=== PATIENT | male | born 1950 | race Caucasian/White ===

== ENCOUNTER 2018-10-04 06:16 | Inpatient (IN) | payer MEDICARE ==
--- NOTE | 2018-10-04 06:53 | XR ---
EXAM: XR Chest, 2 Views CLINICAL HISTORY: ITS.REASON XR Reason: Chest Pain TECHNIQUE: Frontal and lateral views of the chest. COMPARISON: No relevant prior studies available. FINDINGS: Lungs: Bibasilar atelectasis with possible right lower lobe infiltrate. Pleural space: Unremarkable. No pneumothorax. Heart: Unremarkable. No cardiomegaly. Mediastinum: Unremarkable. Bones/joints: Degenerative changes of the spine. IMPRESSION: Bibasilar atelectasis with possible right lower lobe infiltrate.
[2018-10-04 07:05] LABS: Basophils % (A) 0 %; Eosinophils # (A) 0.1 k/uL (0-0.7); Eosinophils % (A) 1 %; HCT 41.2 % (39.0-53.0); HGB 13.3 gm/dL (13.0-17.5); Lymphocytes # (A) 1.2 k/uL (1.0-4.8); Lymphocytes % (A) 10 %; MCH 29.3 pg (25.0-35.0); MCHC 32.3 g/dL (31.0-37.0); MCV 90.9 fL (80.0-100.0); Mean Platelet Volume 6.5; Monocytes # (A) 0.6 k/uL (0-1.0); Monocytes % (A) 5 %; Neutrophils # (A) 9.9 k/uL (1.3-7.7); Neutrophils % (A) 83 %; Platelet Count 273 k/uL (150-450); RBC 4.53 m/uL (4.30-5.90); RDW 12.5 % (11.5-15.5)
[2018-10-04 07:18] LABS: Calcium 9.4 mg/dL (8.4-10.2); Magnesium 1.8 mg/dL (1.6-2.3); Total Protein 6.7 g/dL (6.3-8.2)
[2018-10-04 07:19] LABS: Potassium 4.7 mmol/L (3.5-5.1)
[2018-10-04 07:24] LABS: INR 0.9 (<1.2); Partial Thromboplastin Time 22.2 sec (22.0-30.0); Prothrombin Time 10.1 sec (9.0-12.0)
[2018-10-04] MEDS ORDERED: NITROGLYCERIN SL TABS 0.4 MG TAB SUBLINGUAL STA (07:25)
[2018-10-04 07:28] LABS: Creatine Kinase 212 U/L (55-170)
--- NOTE | 2018-10-04 07:30 | ED ---
Chest Pain HPI - General Chief Complaint: Chest Pain Stated Complaint: CHEST PAIN Time Seen by Provider: 10/04/18 07:00 Source: patient, EMS, RN notes reviewed Mode of arrival: EMS Limitations: no limitations - History of Present Illness Initial Comments: Is a 67-year-old male with a prior history of heart disease with a stent about 15 years ago who had the onset about 3 hours prior to my contact with him of retrosternal chest pressure he states it was 8/10 severity. He had some nausea and vomiting with no diaphoresis no shortness breath or other symptoms. He states she's never had pain quite like this before he has taken aspirin nitroglycerin without relief. No recent colds flu cough phlegm production or other symptoms. No abdominal pain he does point to his lower mid sternum. MD Complaint: chest pain - Related Data Allergies Allergy/AdvReac Type Severity Reaction Status Date / Time No Known Allergies Allergy Verified 10/04/18 06:20 Review of Systems ROS Statement: Those systems with pertinent positive or pertinent negative responses have been documented in the HPI. ROS Other: All systems not noted in ROS Statement are negative. EKG Findings - EKG Results: EKG: interpreted by GUALBERTO (Sinus bradycardia rate of 56. Interval 132 year as 100 QT since QTC 442/426 evidence of old inferior changes noted definite acute ST-T wave changes) Past Medical History Past Medical History: Hyperlipidemia, Hypertension, Myocardial Infarction ([place]) Additional Past Medical History / Comment(s): kidney stones, History of Any Multi-Drug Resistant Organisms: None Reported Past Surgical History: Heart Catheterization With Stent Past Psychological History: No Psychological Hx Reported Smoking Status: Never smoker Past Alcohol Use History: None Reported Past Drug Use History: None Reported General Exam - General Exam Comments Initial Comments: This is a well-developed well-nourished awake alert oriented 3 male Limitations: no limitations General appearance: alert, anxious Head exam: Present: atraumatic, normocephalic, normal inspection Eye exam: Present: normal appearance, PERRL, EOMI. Absent: scleral icterus, conjunctival injection, periorbital swelling ENT exam: Present: normal exam, mucous membranes moist Neck exam: Present: normal inspection. Absent: tenderness, meningismus, lymphadenopathy Respiratory exam: Present: normal lung sounds bilaterally. Absent: respiratory distress, wheezes, rales, rhonchi, stridor Cardiovascular Exam: Present: normal rhythm, bradycardia, normal heart sounds. Absent: systolic murmur, diastolic murmur, rubs, gallop, clicks GI/Abdominal exam: Present: soft, normal bowel sounds. Absent: distended, tenderness, guarding, rebound, rigid Extremities exam: Present: normal inspection, full ROM, normal capillary refill. Absent: tenderness, pedal edema, joint swelling, calf tenderness Back exam: Present: normal inspection Neurological exam: Present: alert, oriented X3, CN II-XII intact Psychiatric exam: Present: normal affect, normal mood Skin exam: Present: warm, dry, intact, normal color. Absent: rash Course Vital Signs 10/04/18 10/04/18 10/04/18 06:17 06:19 06:20 Temperature 97.8 F Pulse Rate 58 L Respiratory 22 Rate Blood Pressure 113/70 113/70 O2 Sat by Pulse 96 90 L 64 L Oximetry 10/04/18 10/04/18 10/04/18 06:30 06:40 06:50 Temperature Pulse Rate 58 L 52 L 55 L Respiratory 18 19 20 Rate Blood Pressure 106/72 115/63 133/69 O2 Sat by Pulse 100 100 100 Oximetry 10/04/18 10/04/18 07:28 07:56 Temperature Pulse Rate 66 65 Respiratory 18 18 Rate Blood Pressure 127/67 106/59 O2 Sat by Pulse 98 974 H Oximetry - Reevaluation(s) Reevaluation #1: 10/04/18 07:33 Old EKG was obtained from 02/15/09 which shows a very similar configuration today 's EKG the exception of more prominent T waves in V4 5 and 6 Chest Pain MDM - MDM I did reevaluate patient several occasions the pain the patient presents with his last far unchanged with measures taken. Cardiac enzymes and EKGs. Be unremarkable he does have evidence on x-ray of right lower lobe infiltrate. I had a long discussion with him and his family were present patient will be admitted for evaluation of pneumonia and atypical chest pain. Disposition Clinical Impression: Right lower lobe pneumonia, Atypical chest pain Disposition: ADMITTED IP TO THIS [facility] Condition: Stable Referrals: Julienne Sinclair DO [REFERRING] - 1-2 days
[2018-10-04 07:39] LABS: Creatine Kinase MB 3.8 ng/mL (0.0-2.4); Troponin I <0.012 ng/mL (0.000-0.034)
[2018-10-04 07:43] LABS: Amylase 59 U/L (30-110); Lipase 105 U/L (23-300)
[2018-10-04] MEDS ORDERED: MAG HYDROX/AL HYDROX/SIMETH 30 ML, HYOSCYAMINE ELIXIR 10 ML, CIMETIDINE HCL 300 MG PO STA ×3 (07:48)
[2018-10-04] MEDS ORDERED: KETOROLAC 30 MG/ML 1 ML VIAL IVP STA (08:40)
[2018-10-04] MEDS ORDERED: AZITHROMYCIN 500 MG in SODIUM CHLORIDE 0.9% 250 ML IVPB STA (09:02)
[2018-10-04] MEDS ORDERED: PNEUMONIA PROTOCOL UTILIZED 1 EACH MISC PO PRN (09:02)
[2018-10-04] MEDS ORDERED: NITROGLYCERIN SL TABS 0.4 MG TAB SUBLINGUAL PRN (09:04)
[2018-10-04] MEDS ORDERED: HEPARIN SODIUM,PORCINE 5,000 UNIT/ML 1 ML VIAL IV ONE (09:04)
[2018-10-04] MEDS ORDERED: HEPARIN SOD,PORK IN 0.45% NACL 25,000 UNIT in 0.45% NACL 1 250ML.BAG IV SCH (09:15)
[2018-10-04] MEDS: SODIUM CHLORIDE 0.9% 1,000 ML IV SCH ×2 (09:25→21:30)
[2018-10-04] MEDS ORDERED: NITROGLYCERIN OINT 1 INCH/GM PACKET TOPICAL SCH (12:00)
[2018-10-04 12:09] LABS: Creatine Kinase 140 U/L (55-170)
[2018-10-04 12:21] LABS: Creatine Kinase MB 2.4 ng/mL (0.0-2.4); Troponin I <0.012 ng/mL (0.000-0.034)
--- NOTE | 2018-10-04 14:08 | P.HPIM ---
History of Present Illness H&P Date: 10/04/18 Chief Complaint: Chest pain This is a 67-year-old male patient of Dr. Sinclair. Patient presented to the emergency room with complaints of chest pain that started around 4 AM. Patient describes pain as sharp localized pain in middle of chest. Patient does report he has a history of [place] with stents approximately 15 years ago but is not currently on any anticoagulation. Additional medical history includes hyperlipidemia, hypertension, renal disease, kidney stones and colonoscopy. Chest x-ray completed emergency room showing bibasilar atelectasis with possible right lower lobe infiltrate. Patient started on Zithromax and Rocephin for possible pneumonia. Repeat chest x-ray ordered for a.m. EKG completed showing sinus bradycardia with a heart rate of 56. Troponins negative. D-dimer 0.39. Patient started on heparin drip and cardiology services have been consulted. At this time patient still is reporting some chest discomfort. Patient denies shortness of breath. Patient denies cough. Patient denies any urinary burning or frequency. Patient denies nausea vomiting or diarrhea. Review of Systems Please refer to HPI otherwise unremarkable Past Medical History Past Medical History: Coronary Artery Disease (CAD), Hyperlipidemia, Hypertension, Myocardial Infarction ([place]), Renal Disease Additional Past Medical History / Comment(s): Multiple kidney stones, Last Myocardial Infarction Date:: 1992 History of Any Multi-Drug Resistant Organisms: None Reported Past Surgical History: Heart Catheterization With Stent Additional Past Surgical History / Comment(s): PCI with stent, lithotripsy and open surgery for stone removals, colonoscopy Past Anesthesia/Blood Transfusion Reactions: Motion Sickness Date of Last Stent Placement:: 1992 Smoking Status: Never smoker - Past Family History Father Family Medical History: Myocardial Infarction ([place]) Additional Family Medical History / Comment(s): Father of a [place] in his 70s. Mother Family Medical History: Myocardial Infarction ([place]) Additional Family Medical History / Comment(s): Mother of a [place] in her late 60s. Medications and Allergies Home Medications Medication Instructions Recorded Confirmed Type Atorvastatin [Lipitor] 20 mg PO DAILY 10/04/18 10/04/18 History Ergocalciferol (Vitamin D2) 50,000 unit PO Q7D 10/04/18 10/04/18 History [Vitamin D2] Finasteride [Proscar] 5 mg PO DAILY 10/04/18 10/04/18 History Fluticasone Nasal [place] [Flonase 2 spr EA NOSTRIL DAILY 10/04/18 10/04/18 History Nasal [place]] Losartan [Cozaar] 50 mg PO DAILY 10/04/18 10/04/18 History Meloxicam 7.5 mg PO DAILY 10/04/18 10/04/18 History Omeprazole 20 mg PO DAILY 10/04/18 10/04/18 History Propranolol [Inderal] 40 mg PO BID 10/04/18 10/04/18 History Allergies Allergy/AdvReac Type Severity Reaction Status Date / Time No Known Allergies Allergy Verified 10/04/18 09:37 Physical Exam Vitals: Vital Signs Temp Pulse Pulse Resp BP BP Pulse Ox 10/04/18 12:07 88 18 129/83 99 10/04/18 12:00 96.2 F L 95 18 137/73 97 10/04/18 11:22 87 18 134/77 99 10/04/18 09:37 86 18 134/71 100 10/04/18 07:56 65 18 106/59 974 H 10/04/18 07:28 66 18 127/67 98 10/04/18 06:50 55 L 20 133/69 100 10/04/18 06:40 52 L 19 115/63 100 10/04/18 06:30 58 L 18 106/72 100 10/04/18 06:20 113/70 64 L 10/04/18 06:19 90 L 10/04/18 06:17 97.8 F 58 L 22 113/70 96 Intake and Output 10/03/18 10/04/18 10/04/18 22:59 06:59 14:59 Intake Total 1200 Balance 1200 Intake: Amount of Fluid Infused ( 1000 ml) Oral 200 Other: Weight 76.204 kg Head normocephalic Neck supple Lungs clear to auscultation bilaterally no wheezing or crackles Heart regular rate and rhythm S1-S2, no rub or gallop Abdomen is soft nontender nondistended positive bowel sounds no hepatosplenomegaly Extremities no edema Neuro alert and orientated to 3 Results CBC & Chem 7: 10/04/18 06:26 10/04/18 06:26 Labs: Abnormal Lab Results - Last 24 Hours (Table) 10/04/18 10/04/18 10/04/18 Range/Units 06:26 06:26 06:26 WBC 12.0 H (3.8-10.6) k/uL Neutrophils # 9.9 H (1.3-7.7) k/uL BUN 32 H (9-20) mg/dL Glucose 165 H (74-99) mg/dL Total Creatine Kinase 212 H (55-170) U/L CK-MB (CK-2) 3.8 H (0.0-2.4) ng/mL Thrombosis Risk Factor Assmnt - Choose All That Apply Any of the Below Risk Factors Present?: Yes Each Factor Represents 1 point: Serious lung disease incl. pneumonia (< 1month) Other Risk Factors: Yes Each Risk Factor Represents 2 Points: Age 61-74 years Other congenital or acquired thrombophilia - If yes, enter type in comment: No Thrombosis Risk Factor Assessment Total Risk Factor Score: 3 Thrombosis Risk Factor Assessment Level: Moderate Risk Assessment and Plan Assessment: 1. Chest pain. Troponin negative 2. EKG completed showing sinus bradycardia. Inferior infarct, age undetermined. Cardiac services have been consulted. Patient started on heparin drip. 2. Possible pneumonia. Chest x-ray completed showing bibasilar atelectasis and possible right lower lobe infiltrate. Patient started on Zithromax and Rocephin. Repeat chest x-ray has been ordered for a.m. Sputum culture ordered 3. History of coronary artery disease with previous stent placement. Patient reports this was approximately 15 years ago. Patient currently not on anticoagulation 4. History of hyperlipidemia 5. History of essential hypertension Time with Patient: Greater than 30 (Greater than 60% of the total time spent in counseling and coordination of care. I performed an examination of the patient and discussed their management with the Nurse Practitioner. I have reviewed the Nurse Practitioner's notes and agree with the documented findings and plan of care)
--- NOTE | 2018-10-04 15:30 | P.CRDCN ---
History of Present Illness Consult date: 10/04/18 Requesting physician: Sary Martinez Consult reason: chest pain Chief complaint: Chest pain History of present illness: This is a pleasant 67-year-old gentleman with known history of coronary artery disease and prior stent placement 15 years ago, history of hypertension, hyperlipidemia, nondiabetic, nonsmoker. Presented to the hospital with symptoms of chest discomfort. His chest pain is located in the lower midsternal area, significantly worse on palpation of the chest wall. Pain started yesterday and is persisting through until today. He does state that he had some mild nausea with associated vomiting, shortness of breath, no diaphoresis. He has had a mild cough but he states he has had this for several years. Chest x-ray performed on admission shows basilar atelectasis with possible right lower lobe infiltrate. EKG on admission here shows sinus bradycardia with inferior Q waves. I pressure 128/80 with a heart rate in the 80s, 99% on 2 L of oxygen. Blood cell count 12.0, hemoglobin 13.3, platelet count 273. D-dimer 0.39, sodium 139, potassium 4.7, BUN 32 and creatinine 1.05. Magnesium level I.8. Troponins negative 2. At the time of my examination this morning, patient's chest wall in the lower midsternal area continues to be sore on palpation of the chest. Past Medical History Past Medical History: Coronary Artery Disease (CAD), Hyperlipidemia, Hypertension, Myocardial Infarction ([place]), Renal Disease Additional Past Medical History / Comment(s): Multiple kidney stones, Last Myocardial Infarction Date:: 1992 History of Any Multi-Drug Resistant Organisms: None Reported Past Surgical History: Heart Catheterization With Stent Additional Past Surgical History / Comment(s): PCI with stent, lithotripsy and open surgery for stone removals, colonoscopy Past Anesthesia/Blood Transfusion Reactions: Motion Sickness Date of Last Stent Placement:: 1992 Smoking Status: Never smoker - Past Family History Father Family Medical History: Myocardial Infarction ([place]) Additional Family Medical History / Comment(s): Father of a [place] in his 70s. Mother Family Medical History: Myocardial Infarction ([place]) Additional Family Medical History / Comment(s): Mother of a [place] in her late 60s. Medications and Allergies Home Medications Medication Instructions Recorded Confirmed Type Atorvastatin [Lipitor] 20 mg PO DAILY 10/04/18 10/04/18 History Ergocalciferol (Vitamin D2) 50,000 unit PO Q7D 10/04/18 10/04/18 History [Vitamin D2] Finasteride [Proscar] 5 mg PO DAILY 10/04/18 10/04/18 History Fluticasone Nasal [place] [Flonase 2 spr EA NOSTRIL DAILY 10/04/18 10/04/18 History Nasal [place]] Losartan [Cozaar] 50 mg PO DAILY 10/04/18 10/04/18 History Meloxicam 7.5 mg PO DAILY 10/04/18 10/04/18 History Omeprazole 20 mg PO DAILY 10/04/18 10/04/18 History Propranolol [Inderal] 40 mg PO BID 10/04/18 10/04/18 History Allergies Allergy/AdvReac Type Severity Reaction Status Date / Time No Known Allergies Allergy Verified 10/04/18 09:37 Physical Exam Vitals: Vital Signs Temp Pulse Pulse Resp BP BP Pulse Ox 10/04/18 12:07 88 18 129/83 99 10/04/18 12:00 96.2 F L 95 18 137/73 97 10/04/18 11:22 87 18 134/77 99 10/04/18 09:37 86 18 134/71 100 10/04/18 07:56 65 18 106/59 974 H 10/04/18 07:28 66 18 127/67 98 10/04/18 06:50 55 L 20 133/69 100 10/04/18 06:40 52 L 19 115/63 100 10/04/18 06:30 58 L 18 106/72 100 10/04/18 06:20 113/70 64 L 10/04/18 06:19 90 L 10/04/18 06:17 97.8 F 58 L 22 113/70 96 Intake and Output 10/04/18 10/04/18 10/04/18 06:59 14:59 22:59 Intake Total 1200 Balance 1200 Intake: Amount of Fluid Infused ( 1000 ml) Oral 200 Other: Weight 76.204 kg PHYSICAL EXAMINATION: GENERAL: 67-year-old gentleman in no acute distress at the time HEENT: Head is atraumatic, normocephalic. Pupils equal, round. Sclera anicteric. Conjunctiva are clear. Mucous membranes of the mouth are moist. Neck is supple. There is no elevated jugular venous pressure. NO Carotid bruit is heard. HEART EXAMINATION: Heart S1, S2 normal. No murmur or gallop heard. CHEST EXAMINATION:[ Lungs are clear to auscultation and precussion. Positive chest wall tenderness is noted on palpation of the chest wall ABDOMEN: Soft, nontender. Bowel sounds are heard. No organomegaly noted. EXTREMITIES: 2+ peripheral pulses with no evidence of peripheral edema and no calf tenderness noted. NEUROLOGIC patient is awake, alert and oriented X3. . Results 10/04/18 06:26 10/04/18 06:26 Cardiac Enzymes 10/04/18 10/04/18 10/04/18 Range/Units 06:26 06:26 11:24 AST 39 (17-59) U/L CK-MB (CK-2) 3.8 H 2.4 (0.0-2.4) ng/mL Troponin I <0.012 <0.012 (0.000-0.034) ng/mL Coagulation 10/04/18 Range/Units 06:26 PT 10.1 (9.0-12.0) sec APTT 22.2 (22.0-30.0) sec CBC 10/04/18 Range/Units 06:26 WBC 12.0 H (3.8-10.6) k/uL RBC 4.53 (4.30-5.90) m/uL Hgb 13.3 (13.0-17.5) gm/dL Hct 41.2 (39.0-53.0) % Plt Count 273 (150-450) k/uL Comprehensive Metabolic Panel 10/04/18 Range/Units 06:26 Sodium 139 (137-145) mmol/L Potassium 4.7 (3.5-5.1) mmol/L Chloride 106 (98-107) mmol/L Carbon Dioxide 24 (22-30) mmol/L BUN 32 H (9-20) mg/dL Creatinine 1.05 (0.66-1.25) mg/dL Glucose 165 H (74-99) mg/dL Calcium 9.4 (8.4-10.2) mg/dL AST 39 (17-59) U/L ALT 45 (21-72) U/L Alkaline Phosphatase 113 (38-126) U/L Total Protein 6.7 (6.3-8.2) g/dL Albumin 4.0 (3.5-5.0) g/dL Current Medications Generic Name Dose Route Start Last Admin Trade Name Freq PRN Reason Stop Dose Admin Aspirin 325 mg 10/05/18 09:00 Aspirin PO DAILY [facility] Atorvastatin Calcium 20 mg 10/05/18 09:00 Lipitor PO DAILY [facility] Azithromycin 500 mg 10/05/18 09:00 Zithromax PO DAILY [facility] Finasteride 5 mg 10/05/18 09:00 Proscar PO DAILY [facility] Fluticasone Propionate 2 spray 10/05/18 09:00 Flonase Nasal [place] EA NOSTRIL DAILY [facility] Ceftriaxone Sodium 1,000 mg/ 50 mls @ 100 mls/hr 10/05/18 09:00 Sodium Chloride IVPB 10/08/18 09:01 Q24HR [facility] Heparin Sodium/Sodium Chloride 250 mls @ 9.14 mls/hr 10/04/18 09:15 10/04/18 09:21 25,000 unit/ Sodium Chloride IV 12 units/kg/hr .Q24H LORI 9.14 mls/hr Administration Protocol 12 UNITS/KG/HR Sodium Chloride 1,000 mls @ 80 mls/hr 10/04/18 09:15 10/04/18 09:25 Saline 0.9% IV 80 mls/hr .[id number] LORI Administration Losartan Potassium 50 mg 10/05/18 09:00 Cozaar PO DAILY [facility] Miscellaneous Information 1 each 10/04/18 09:02 Pneumonia Protocol Utilized PO ONCE PRN Per Protocol Nitroglycerin 1 inch 10/04/18 12:00 10/04/18 09:30 Nitro-Bid Oint TOPICAL 1 inch Q6HR LORI Administration Nitroglycerin 0.4 mg 10/04/18 09:04 Nitrostat SUBLINGUAL Q5M PRN Chest Pain Pantoprazole Sodium 40 mg 10/05/18 07:30 Protonix PO AC-BRKFST [facility] Propranolol HCl 40 mg 10/04/18 21:00 Inderal PO BID LORI Intake and Output 10/04/18 10/04/18 10/04/18 06:59 14:59 22:59 Intake Total 1200 Balance 1200 Intake: Amount of Fluid Infused ( 1000 ml) Oral 200 Other: Weight 76.204 kg 10/04/18 06:26 10/04/18 06:26 EKG Interpretations (text) EKG shows a sinus bradycardia with inferior Q waves. Assessment and Plan Plan: Assessment and plan #1 chest pain, atypical for acute coronary syndrome. Troponins negative 2. EKG shows a sinus bradycardia with inferior Q waves #2 known history of coronary artery disease with prior stent placement several years ago #3 hypertension #4 hyperlipidemia #5 family history of premature coronary artery disease in both of his periods Plan We will obtain an echocardiogram with Doppler study. Repeat EKG. Obtain third troponin. If third troponin comes back negative, recommend possible stress test in the morning. Further recommendations to follow. DNP note has been reviewed, I agree with a documented findings and plan of care. Patient was seen and examined.
[2018-10-04] MEDS: KETOROLAC 30 MG/ML 1 ML VIAL IVP PRN ×2 (16:27→23:12)
[2018-10-04] MEDS: HEPARIN SODIUM,PORCINE 5,000 UNIT/ML 1 ML VIAL IV PRN (17:38)
[2018-10-04] MEDS ORDERED: KETOROLAC 30 MG/ML 1 ML VIAL IVP SCH (18:00)
[2018-10-04 18:59] LABS: Creatine Kinase 112 U/L (55-170)
[2018-10-04 19:12] LABS: Creatine Kinase MB 1.9 ng/mL (0.0-2.4); Troponin I <0.012 ng/mL (0.000-0.034)
[2018-10-04] MEDS: PROPRANOLOL 40 MG TAB PO SCH (21:30)
[2018-10-05] MEDS: KETOROLAC 30 MG/ML 1 ML VIAL IVP PRN ×2 (05:17→14:34)
[2018-10-05 06:38] LABS: Basophils % (A) 0 %; Eosinophils % (A) 0 %; HCT 36.8 % (39.0-53.0); Lymphocytes # (A) 0.8 k/uL (1.0-4.8); Lymphocytes % (A) 7 %; MCH 30.2 pg (25.0-35.0); MCHC 32.6 g/dL (31.0-37.0); MCV 92.6 fL (80.0-100.0); Mean Platelet Volume 6.9; Monocytes % (A) 8 %; Neutrophils # (A) 9.8 k/uL (1.3-7.7); Neutrophils % (A) 83 %; Platelet Count 178 k/uL (150-450); RBC 3.98 m/uL (4.30-5.90); RDW 12.8 % (11.5-15.5); WBC 11.8 k/uL (3.8-10.6)
[2018-10-05 06:43] LABS: Calcium 8.8 mg/dL (8.4-10.2); Potassium 4.3 mmol/L (3.5-5.1); Total Protein 5.4 g/dL (6.3-8.2)
[2018-10-05] MEDS ORDERED: PANTOPRAZOLE 40 MG TABLET PO SCH (07:30)
--- NOTE | 2018-10-05 07:30 | XR ---
EXAMINATION TYPE: XR chest 2V DATE OF EXAM: 10/05/2018 COMPARISON: 10/04/2018 INDICATION: Pneumonia TECHNIQUE: Frontal and lateral views of the chest are obtained. FINDINGS: The heart size is normal. The pulmonary vasculature is normal. The lungs are clear. Improving shadows at the bilateral lung bases. IMPRESSION: 1. No acute pulmonary process.
[2018-10-05] MEDS: HEPARIN SODIUM,PORCINE 5,000 UNIT/ML 1 ML VIAL IV PRN (08:19)
[2018-10-05] MEDS ORDERED: ATORVASTATIN 20 MG TAB PO SCH (09:00)
[2018-10-05] MEDS ORDERED: AZITHROMYCIN 500 MG TAB PO SCH (09:00)
[2018-10-05] MEDS ORDERED: LOSARTAN 50 MG TAB PO SCH (09:00)
[2018-10-05] MEDS ORDERED: FLUTICASONE 50MCG/SPRAY NASAL 16GM EA NOSTRIL SCH (09:00)
[2018-10-05] MEDS ORDERED: ASPIRIN 325 MG TAB PO SCH (09:00)
[2018-10-05] MEDS ORDERED: FINASTERIDE 5 MG TAB PO SCH (09:00)
[2018-10-05] MEDS: PROPRANOLOL 40 MG TAB PO SCH (10:28)
[2018-10-05] MEDS: SODIUM CHLORIDE 0.9% 1,000 ML IV SCH (10:38)
--- NOTE | 2018-10-05 11:28 | ECHOF ---
Referral Reason:chest pain MEASUREMENTS -------- HEIGHT: 172.7 cm WEIGHT: 76.2 kg BP: 129/83 IVSd: 0.9 cm (0.6 - 1.1) LVIDd: 5.0 cm (3.9 - 5.3) LVPWd: 0.9 cm (0.6 - 1.1) IVSs: 1.4 cm LVIDs: 3.6 cm LVPWs: 1.4 cm RVIDd: 3.1 cm (< 3.3) LAESV Index (A-L): 25.16 ml/m Ao Diam: 2.9 cm (2.0 - 3.7) LA Diam: 3.7 cm (2.7 - 3.8) AV Cusp: 2.0 cm (1.5 - 2.6) EPSS: 0.3 cm MV E Patrice: 0.94 m/s MV DecT: 312 ms MV A Patrice: 1.34 m/s MV E/A Ratio: 0.70 RAP: 5.00 mmHg RVSP: 31.22 mmHg MV EF SLOPE: 120.41 mm/s (70 - 150) MV EXCURSION: 18.55 mm (> 18.000) FINDINGS -------- Sinus rhythm. This was a technically good study. The left ventricular size is normal. Left ventricular wall thickness is normal. Overall left vent ricular systolic function is normal with, an EF between 55 - 60 %. The right ventricle is normal in size and function. Normal LA size by volume 22+/-6 ml/m2. RA appears enlarged. Aortic valve is trileaflet and is mildly thickened. Trace amount of aortic regurgitation. There is no evidence of aortic stenosis. The mitral valve leaflets are mildly thickened. Mild mitral regurgitation is present. Mild tricuspid regurgitation present. Right ventricular systolic pressure is normal at < 35 mmHg. There is no evidence of pulmonary hypertension. Trace/mild (physiologic) pulmonic regurgitation. The aortic root size is normal. Normal inferior vena cava with normal inspiratory collapse consistent with estimated right atrial pre ssure of 5 mmHg. There is no pericardial effusion. CONCLUSIONS -------- 1. Sinus rhythm. 2. This was a technically good study. 3. The left ventricular size is normal. 4. Left ventricular wall thickness is normal. 5. Overall left ventricular systolic function is normal with, an EF between 55 - 60 %. 6. Normal LA size by volume 22+/-6 ml/m2. 7. RA appears enlarged. 8. Aortic valve is trileaflet and is mildly thickened. 9. Trace amount of aortic regurgitation. 10. The mitral valve leaflets are mildly thickened. 11. Mild mitral regurgitation is present. 12. Mild tricuspid regurgitation present. 13. Right ventricular systolic pressure is normal at < 35 mmHg. 14. There is no evidence of pulmonary hypertension. 15. Trace/mild (physiologic) pulmonic regurgitation. 16. The aortic root size is normal. 17. There is no pericardial effusion. ANIMAL PATHOLOGIST: Yimi Mcdaniel RDCS
--- NOTE | 2018-10-05 14:29 | P.PN ---
Subjective Progress Note Date: 10/05/18 This is a pleasant 67-year-old gentleman with known history of coronary artery disease and prior stent placement 15 years ago, history of hypertension, hyperlipidemia, nondiabetic, nonsmoker. Presented to the hospital with symptoms of chest discomfort. His chest pain is located in the lower midsternal area, significantly worse on palpation of the chest wall. Pain started yesterday and is persisting through until today. He does state that he had some mild nausea with associated vomiting, shortness of breath, no diaphoresis. He has had a mild cough but he states he has had this for several years. Chest x-ray performed on admission shows basilar atelectasis with possible right lower lobe infiltrate. EKG on admission here shows sinus bradycardia with inferior Q waves. I pressure 128/80 with a heart rate in the 80s, 99% on 2 L of oxygen. Blood cell count 12.0, hemoglobin 13.3, platelet count 273. D-dimer 0.39, sodium 139, potassium 4.7, BUN 32 and creatinine 1.05. Magnesium level I.8. Troponins negative 2. At the time of my examination this morning, patient's chest wall in the lower midsternal area continues to be sore on palpation of the chest. 10/05/2018 Patient was seen and examined this morning, still has some chest wall tenderness. Cardiac enzymes and troponins were negative 3. He underwent a stress echocardiographic study today that was negative for any reversible ischemia. Blood pressure 134/60 with a heart rate in the 70s to 80s, 94% on room air. Blood cell count 11.8, hemoglobin 12.0, platelet count 178. Sodium 139, potassium 4.3, BUN 29 and creatinine 1.0. Objective - Vital Signs Vital signs: Vital Signs Temp 98.7 F 10/05/18 04:00 Pulse 90 10/05/18 04:00 Resp 17 10/05/18 04:00 BP 143/58 10/05/18 04:00 Pulse Ox 95 10/05/18 07:25 Intake & Output 10/04/18 10/05/18 10/05/18 18:59 06:59 18:59 Intake Total 1516.167 73.152 67.027 Output Total 700 Balance 816.167 73.152 67.027 Weight 80 kg Intake: Amount of Fluid Infused ( 1000 ml) Intake, IV Titration 76.167 73.152 67.027 Amount Heparin Sod,Pork in 0.45% 76.167 73.152 67.027 NaCl 25,000 unit In 0.45 % NaCl 1 250ml.bag @ 12 UNITS/KG/HR 9.14 mls/hr IV .Q24H [facility] Rx#: [id number] Oral 440 Output: Urine 700 Other: Voiding Method Toilet # Voids 4 2 - Exam PHYSICAL EXAMINATION: GENERAL: 67-year-old gentleman in no acute distress at the time HEENT: Head is atraumatic, normocephalic. Pupils equal, round. Sclera anicteric. Conjunctiva are clear. Mucous membranes of the mouth are moist. Neck is supple. There is no elevated jugular venous pressure. NO Carotid bruit is heard. HEART EXAMINATION: Heart S1, S2 normal. No murmur or gallop heard. CHEST EXAMINATION:[ Lungs are clear to auscultation and precussion. Positive chest wall tenderness is noted on palpation of the chest wall ABDOMEN: Soft, nontender. Bowel sounds are heard. No organomegaly noted. EXTREMITIES: 2+ peripheral pulses with no evidence of peripheral edema and no calf tenderness noted. NEUROLOGIC patient is awake, alert and oriented X3. - Labs CBC & Chem 7: 10/05/18 05:51 10/05/18 05:51 Labs: Abnormal Lab Results - Last 24 Hours (Table) 10/04/18 10/04/18 10/05/18 Range/Units 15:58 23:15 05:51 WBC (3.8-10.6) k/uL RBC (4.30-5.90) m/uL Hgb (13.0-17.5) gm/dL Hct (39.0-53.0) % Neutrophils # (1.3-7.7) k/uL Lymphocytes # (1.0-4.8) k/uL APTT 34.6 H 118.7 H* (22.0-30.0) sec Chloride 110 H (98-107) mmol/L BUN 29 H (9-20) mg/dL Glucose 100 H (74-99) mg/dL Total Protein 5.4 L (6.3-8.2) g/dL Albumin 3.0 L (3.5-5.0) g/dL HDL Cholesterol 37 L (40-60) mg/dL 10/05/18 10/05/18 Range/Units 05:51 05:51 WBC 11.8 H (3.8-10.6) k/uL RBC 3.98 L (4.30-5.90) m/uL Hgb 12.0 L (13.0-17.5) gm/dL Hct 36.8 L (39.0-53.0) % Neutrophils # 9.8 H (1.3-7.7) k/uL Lymphocytes # 0.8 L (1.0-4.8) k/uL APTT 37.2 H (22.0-30.0) sec Chloride (98-107) mmol/L BUN (9-20) mg/dL Glucose (74-99) mg/dL Total Protein (6.3-8.2) g/dL Albumin (3.5-5.0) g/dL HDL Cholesterol (40-60) mg/dL Microbiology - Last 24 Hours (Table) 10/04/18 09:30 Blood Culture - Preliminary Blood No Growth after 24 hours Assessment and Plan Plan: Assessment and plan #1 chest pain, atypical for acute coronary syndrome. Troponins negative 2. EKG shows a sinus bradycardia with inferior Q waves #2 known history of coronary artery disease with prior stent placement several years ago #3 hypertension #4 hyperlipidemia #5 family history of premature coronary artery disease in both of his periods Plan Echocardiogram with Doppler study was performed which revealed a normal left ventricular systolic function. Stress echocardiographic study negative for any reversible ischemia. From cardiology's perspective, patient may be able to be discharged home today, follow-up appointment in the office post discharge. DNP note has been reviewed, I agree with a documented findings and plan of care. Patient was seen and examined.
--- NOTE | 2018-10-05 14:35 | P.DS ---
Providers Date of admission: 10/04/18 09:06 Expected date of discharge: 10/05/18 Attending physician: Sary Martinez Consults: 10/04/18 09:02 Consult Physician Routine Consulting Provider: Tod Mina Consult Reason/Comments: Atypical chest pain, history of cardiac stent Do you want consulting provider notified?: Yes Primary care physician: Adelina Uab Hospital Course: Discharge diagnosis 1. Chest pain. Troponin negative 2. EKG completed showing sinus bradycardia. Inferior infarct, age undetermined. 2-D echo completed showing EF between 55 and 60%. Stress test completed and was negative for any reversible ischemia. Discussed with Teri fraga [employer] per cardiology services. Patient has been cleared for discharge from cardiology standpoint. Patient's chest pain has resolved 2. Possible pneumonia. Chest x-ray completed showing bibasilar atelectasis and possible right lower lobe infiltrate. Repeat chest x-ray completed showing no acute pulmonary process. Patient does have mild cough with no sputum production. Will DC patient on Ceftin 500 twice a day for 5 more days 3. History of coronary artery disease with previous stent placement. Patient reports this was approximately 15 years ago. Patient currently not on anticoagulation 4. History of hyperlipidemia 5. History of essential hypertension Hospital course This is a 67-year-old male patient of Dr. Sinclair. Patient presented to the emergency room with complaints of chest pain that started around 4 AM. Patient describes pain as sharp localized pain in middle of chest. Patient does report he has a history of MT with stents approximately 15 years ago but is not currently on any anticoagulation. Additional medical history includes hyperlipidemia, hypertension, renal disease, kidney stones and colonoscopy. Chest x-ray completed emergency room showing bibasilar atelectasis with possible right lower lobe infiltrate. Patient started on Zithromax and Rocephin for possible pneumonia. Repeat chest x-ray ordered for a.m. EKG completed showing sinus bradycardia with a heart rate of 56. Troponins negative. D-dimer 0.39. Patient started on heparin drip and cardiology services have been consulted. At this time patient still is reporting some chest discomfort. Patient denies shortness of breath. Patient denies cough. Patient denies any urinary burning or frequency. Patient denies nausea vomiting or diarrhea. On 10/05/2018. Patient is alert and oriented 3 resting comfortably in bed. Patient states significant improvement chest pain. Patient states he feels ready to go home. Patient did have stress test and 2-D echo completed. Patient has been cleared for discharge from cardiology standpoint with no changes to medication. Patient will be DC'd on Ceftin 500 twice a day for 5 more days due to possible pneumonia initially found on chest x-ray completed in ER. Patient advised to follow-up closely with his PCP for further evaluation and management. Patient denies chest pain or shortness breath. Denies nausea vomiting or diarrhea. Patient denies any urinary burning I performed an examination of the patient and discussed their management with the Nurse Practitioner. I have reviewed the Nurse Practitioner's notes and agree with the documented findings and plan of care Patient Condition at Discharge: Stable Plan - Discharge Summary Discharge Rx Participant: No New Discharge Prescriptions: New Cefuroxime Axetil [Ceftin] 500 mg PO BID 5 Days #10 tab Continue Propranolol [Inderal] 40 mg PO BID Fluticasone Nasal [place] [Flonase Nasal [place]] 2 spr EA NOSTRIL DAILY Finasteride [Proscar] 5 mg PO DAILY Ergocalciferol (Vitamin D2) [Vitamin D2] 50,000 unit PO Q7D Omeprazole 20 mg PO DAILY Meloxicam 7.5 mg PO DAILY Losartan [Cozaar] 50 mg PO DAILY Atorvastatin [Lipitor] 20 mg PO DAILY Discharge Medication List Atorvastatin [Lipitor] 20 mg PO DAILY 10/04/18 [History] Ergocalciferol (Vitamin D2) [Vitamin D2] 50,000 unit PO Q7D 10/04/18 [History] Finasteride [Proscar] 5 mg PO DAILY 10/04/18 [History] Fluticasone Nasal [place] [Flonase Nasal [place]] 2 spr EA NOSTRIL DAILY 10/04/18 [ History] Losartan [Cozaar] 50 mg PO DAILY 10/04/18 [History] Meloxicam 7.5 mg PO DAILY 10/04/18 [History] Omeprazole 20 mg PO DAILY 10/04/18 [History] Propranolol [Inderal] 40 mg PO BID 10/04/18 [History] Cefuroxime Axetil [Ceftin] 500 mg PO BID 5 Days #10 tab 10/05/18 [Rx] Follow up Appointment(s)/Referral(s): Julienne Sinclair DO [REFERRING] - 1-2 days Activity/Diet/Wound Care/Special Instructions: Activity as tolerated Diet regular Discharge Disposition: HOME SELF-CARE
[2018-10-05 16:07] VITALS: RESP 18
[2018-10-05 16:09] VITALS: BP 127/63; PULSE 86; TEMP 98.8
--- NOTE | 2018-10-06 10:57 | ECHOS ---
STRESS ECHOCARDIOGRAM INDICATIONS: Chest pain. MEDICATIONS: BP pill, aspirin. BASELINE HEART RATE: 83 BASELINE BLOOD PRESSURE: 127/52 MAXIMUM HEART RATE: 121 MAXIMUM BLOOD PRESSURE: 179/57 85% MPHR: 129 100% MPHR: 152 METS: 11.7 MAXIMUM STAGE REACHED: III TOTAL EXERCISE TIME: 10:15 CLINICAL INFORMATION: Baseline heart rate 83 beats per minute. Baseline blood pressure 127/52 mmHg. Baseline 12-lead ECG shows normal sinus rhythm with normal cardiac intervals. Patient exercised on a Ronaldo protocol for 10 minutes 15 seconds achieving a peak heart rate of 121 beats per minute. Normal blood pressure response to exercise. There was a [address]- depression noted at peak exercise with T-wave inversions. This became downsloping ST depression of about 2 mm at peak exercise. The baseline 2D echo showed normal LV size and systolic function at peak exercise there was excellent augmentation of overall LV contractility without any augmentation or any deterioration in the segmental wall function of the inferior basal segment. At recovery, global LV systolic function remained normal. Inferior basal segment function remained the same. IMPRESSION: Abnormal ECG with an ischemic response of downsloping [address] depression. The echocardiographic images do not show any worsening of the inferior wall motion abnormality. However, is definitely an ischemic response based upon the ECG criteria. MMODL / IJN: [id number] /
== END 2018-10-05 15:50 | disposition home or self-care (01) | DRG 194 ==
LOC: EC 06:16 → 3SCARD 09:06
PROVIDERS: ADMIT Internal Medicine; ATTEND Internal Medicine
DX: J18.9 Pneumonia, unspecified organism (principal); J98.11 Atelectasis; R07.89 Other chest pain; E78.5 Hyperlipidemia, unspecified; I10 Essential (primary) hypertension; I25.10 Atherosclerotic heart disease of native coronary artery without angina pectoris; I25.2 Old myocardial infarction; Z79.899 Other long term (current) drug therapy; Z82.49 Family history of ischemic heart disease and other diseases of the circulatory system; Z87.442 Personal history of urinary calculi; Z95.5 Presence of coronary angioplasty implant and graft; R00.1 Bradycardia, unspecified
CPT/HCPCS: 36415; 71046; 80053; 80061; 82150; 82550; 82553; 83690; 83735; 84484; 85025; 85379; 85610; 85730; 87040; 93005; 93306; 93351; 94760; 96365; 96366; 96375; 96376; 99285

== ENCOUNTER 2018-10-06 15:18 | Inpatient (IN) | payer MEDICARE ==
[2018-10-06] MEDS ORDERED: SODIUM CHLORIDE 0.9% 1,000 ML IV STA ×2 (15:56)
[2018-10-06] MEDS ORDERED: IPRATROPIUM-ALBUTEROL 3 ML NEB INHALATION STA (15:56)
[2018-10-06 16:45] LABS: Basophils % (A) 0 %; Eosinophils # (A) 0.1 k/uL (0-0.7); Eosinophils % (A) 1 %; HCT 42.4 % (39.0-53.0); HGB 14.1 gm/dL (13.0-17.5); Lymphocytes # (A) 0.6 k/uL (1.0-4.8); Lymphocytes % (A) 4 %; MCH 30.4 pg (25.0-35.0); MCHC 33.2 g/dL (31.0-37.0); MCV 91.6 fL (80.0-100.0); Mean Platelet Volume 6.3; Monocytes # (A) 0.8 k/uL (0-1.0); Monocytes % (A) 6 %; Neutrophils # (A) 12.4 k/uL (1.3-7.7); Neutrophils % (A) 89 %; Platelet Count 221 k/uL (150-450); RBC 4.63 m/uL (4.30-5.90); RDW 12.5 % (11.5-15.5)
--- NOTE | 2018-10-06 16:49 | ED ---
SOB HPI - General Chief Complaint: Shortness of Breath Stated Complaint: Lung problems Time Seen by Provider: 10/06/18 15:33 Source: patient, RN notes reviewed, old records reviewed Mode of arrival: ambulatory Limitations: no limitations - History of Present Illness Initial Comments: This is a 59-year-old male to the ER for evaluation. She presents today for evaluation regarding persistent shortness of breath right-sided chest pain. Patient is recent admission for pneumonia, pneumonia was left-sided and patient states his symptoms are worsening shortness of breath is worsening pain is worsening. No recent travel history no known other sick contacts. No change in symptoms but symptoms are worsening. MD Complaint: shortness of breath, cough -: days(s) Severity: mild Severity scale (1-10): 3 Quality: aching Consistency: constant Improves With: nothing Worsens With: coughing Known History Of: congestive heart failure, recurrent pneumonia Context: recent URI Associated Symptoms: chest pain, pain with inspiration, fever, cough Treatments Prior to Arrival: none - Related Data Home Medications Medication Instructions Recorded Confirmed Atorvastatin [Lipitor] 20 mg PO DAILY 10/04/18 10/06/18 Ergocalciferol (Vitamin D2) 50,000 unit PO LENZ 10/04/18 10/06/18 [Vitamin D2] Finasteride [Proscar] 5 mg PO DAILY 10/04/18 10/06/18 Fluticasone Nasal [place] [Flonase 2 spr EA NOSTRIL DAILY 10/04/18 10/06/18 Nasal [place]] Losartan [Cozaar] 50 mg PO DAILY 10/04/18 10/06/18 Meloxicam 7.5 mg PO DAILY 10/04/18 10/06/18 Omeprazole 20 mg PO DAILY 10/04/18 10/06/18 Propranolol [Inderal] 40 mg PO BID 10/04/18 10/06/18 Multivitamins, Thera [Multivitamin 1 tab PO DAILY 10/06/18 10/06/18 (formulary)] Previous Rx's Medication Instructions Recorded Cefuroxime Axetil [Ceftin] 500 mg PO BID 5 Days #10 tab 10/05/18 Allergies Allergy/AdvReac Type Severity Reaction Status Date / Time No Known Allergies Allergy Verified 10/06/18 16:01 Review of Systems ROS Statement: Those systems with pertinent positive or pertinent negative responses have been documented in the HPI. ROS Other: All systems not noted in ROS Statement are negative. Past Medical History Past Medical History: Coronary Artery Disease (CAD), Hyperlipidemia, Hypertension, Myocardial Infarction (NH), Renal Disease Additional Past Medical History / Comment(s): Multiple kidney stones, Last Myocardial Infarction Date:: 1992 History of Any Multi-Drug Resistant Organisms: None Reported Past Surgical History: Heart Catheterization With Stent Additional Past Surgical History / Comment(s): PCI with stent, lithotripsy and open surgery for stone removals, colonoscopy Past Anesthesia/Blood Transfusion Reactions: Motion Sickness Date of Last Stent Placement:: 1992 Past Psychological History: No Psychological Hx Reported Smoking Status: Never smoker Past Alcohol Use History: None Reported Past Drug Use History: None Reported - Past Family History Father Family Medical History: Myocardial Infarction (NH) Additional Family Medical History / Comment(s): Father of a NH in his 70s. Mother Family Medical History: Myocardial Infarction (NH) Additional Family Medical History / Comment(s): Mother of a NH in her late 60s. General Exam Limitations: no limitations General appearance: alert, in no apparent distress Head exam: Present: atraumatic, normocephalic, normal inspection Eye exam: Present: normal appearance, PERRL, EOMI. Absent: scleral icterus, conjunctival injection, periorbital swelling ENT exam: Present: normal exam, mucous membranes moist Neck exam: Present: normal inspection. Absent: tenderness, meningismus, lymphadenopathy Respiratory exam: Present: normal lung sounds bilaterally. Absent: respiratory distress, wheezes, rales, rhonchi, stridor Cardiovascular Exam: Present: regular rate, normal rhythm, normal heart sounds. Absent: systolic murmur, diastolic murmur, rubs, gallop, clicks GI/Abdominal exam: Present: soft, normal bowel sounds. Absent: distended, tenderness, guarding, rebound, rigid Extremities exam: Present: normal inspection, full ROM, normal capillary refill. Absent: tenderness, pedal edema, joint swelling, calf tenderness Back exam: Present: normal inspection Neurological exam: Present: alert, oriented X3, CN II-XII intact Psychiatric exam: Present: normal affect, normal mood Skin exam: Present: warm, dry, intact, normal color. Absent: rash Course Vital Signs 10/06/18 10/06/18 10/06/18 15:26 16:12 16:27 Temperature 99.8 F H Pulse Rate 58 L 60 60 Respiratory 20 Rate Blood Pressure 154/77 O2 Sat by Pulse 99 Oximetry 10/06/18 17:50 Temperature Pulse Rate 93 Respiratory 18 Rate Blood Pressure 131/79 O2 Sat by Pulse 93 L Oximetry - Reevaluation(s) Reevaluation #1: 10/06/18 19:11 Medical record recent hospitalization or reviewed Reevaluation #2: 10/06/18 19:11 Patient is improved here as well as breathing Medical Decision Making - Medical Decision Making 59 female the ER for evasive cough congestion worsening right-sided chest pain CT is negative for PE but does show worsening infiltrate worsening pneumonia with worsening effusion. We'll admit for continued antibiotic treatment therapy - Lab Data Result diagrams: 10/06/18 16:15 10/06/18 16:15 Lab Results 10/06/18 10/06/18 10/06/18 Range/Units 16:15 16:15 16:15 WBC 14.0 H (3.8-10.6) k/uL RBC 4.63 (4.30-5.90) m/uL Hgb 14.1 (13.0-17.5) gm/dL Hct 42.4 (39.0-53.0) % MCV 91.6 (80.0-100.0) fL MCH 30.4 (25.0-35.0) pg MCHC 33.2 (31.0-37.0) g/dL RDW 12.5 (11.5-15.5) % Plt Count 221 (150-450) k/uL Neutrophils % 89 % Lymphocytes % 4 % Monocytes % 6 % Eosinophils % 1 % Basophils % 0 % Neutrophils # 12.4 H (1.3-7.7) k/uL Lymphocytes # 0.6 L (1.0-4.8) k/uL Monocytes # 0.8 (0-1.0) k/uL Eosinophils # 0.1 (0-0.7) k/uL Basophils # 0.0 (0-0.2) k/uL PT (9.0-12.0) sec INR (<1.2) APTT (22.0-30.0) sec D-Dimer (<0.60) mg/L FEU Sodium 141 (137-145) mmol/L Potassium 4.1 (3.5-5.1) mmol/L Chloride 109 H (98-107) mmol/L Carbon Dioxide 23 (22-30) mmol/L Anion Gap 9 mmol/L BUN 20 (9-20) mg/dL Creatinine 0.72 (0.66-1.25) mg/dL Est GFR (CKD-EPI)AfAm >90 (>60 ml/min/1.73 sqM) Est GFR (CKD-EPI)NonAf >90 (>60 ml/min/1.73 sqM) Glucose 132 H (74-99) mg/dL Calcium 9.1 (8.4-10.2) mg/dL Magnesium 1.8 (1.6-2.3) mg/dL Total Bilirubin 1.2 (0.2-1.3) mg/dL AST 29 (17-59) U/L ALT 36 (21-72) U/L Alkaline Phosphatase 106 (38-126) U/L Total Creatine Kinase 75 (55-170) U/L CK-MB (CK-2) 1.3 (0.0-2.4) ng/mL CK-MB (CK-2) Rel Index 1.7 Troponin I <0.012 (0.000-0.034) ng/mL NT-Pro-B Natriuret Pep pg/mL Total Protein 6.2 L (6.3-8.2) g/dL Albumin 3.5 (3.5-5.0) g/dL 10/06/18 10/06/18 Range/Units 16:15 16:15 WBC (3.8-10.6) k/uL RBC (4.30-5.90) m/uL Hgb (13.0-17.5) gm/dL Hct (39.0-53.0) % MCV (80.0-100.0) fL MCH (25.0-35.0) pg MCHC (31.0-37.0) g/dL RDW (11.5-15.5) % Plt Count (150-450) k/uL Neutrophils % % Lymphocytes % % Monocytes % % Eosinophils % % Basophils % % Neutrophils # (1.3-7.7) k/uL Lymphocytes # (1.0-4.8) k/uL Monocytes # (0-1.0) k/uL Eosinophils # (0-0.7) k/uL Basophils # (0-0.2) k/uL PT 9.8 (9.0-12.0) sec INR 0.9 (<1.2) APTT 23.5 (22.0-30.0) sec D-Dimer 0.87 H (<0.60) mg/L FEU Sodium (137-145) mmol/L Potassium (3.5-5.1) mmol/L Chloride (98-107) mmol/L Carbon Dioxide (22-30) mmol/L Anion Gap mmol/L BUN (9-20) mg/dL Creatinine (0.66-1.25) mg/dL Est GFR (CKD-EPI)AfAm (>60 ml/min/1.73 sqM) Est GFR (CKD-EPI)NonAf (>60 ml/min/1.73 sqM) Glucose (74-99) mg/dL Calcium (8.4-10.2) mg/dL Magnesium (1.6-2.3) mg/dL Total Bilirubin (0.2-1.3) mg/dL AST (17-59) U/L ALT (21-72) U/L Alkaline Phosphatase (38-126) U/L Total Creatine Kinase (55-170) U/L CK-MB (CK-2) (0.0-2.4) ng/mL CK-MB (CK-2) Rel Index Troponin I (0.000-0.034) ng/mL NT-Pro-B Natriuret Pep 1690 pg/mL Total Protein (6.3-8.2) g/dL Albumin (3.5-5.0) g/dL - EKG Data -: EKG Interpreted by Me (EKG shows sinus rhythm rate of 81, OK 124, QRS 86, QTc 401) - Radiology Data Radiology results: report reviewed (CTA chest is increasing pneumonia increasing pleural effusion), image reviewed Disposition Clinical Impression: Right lower lobe pneumonia, Atypical chest pain, Pleural effusion, Failure of outpatient treatment Disposition: ADMITTED IP TO THIS [facility] Condition: Fair Is patient prescribed a controlled substance at d/c from ED?: No Referrals: Julienne Sinclair DO [Primary Care Provider] - 1-2 days
[2018-10-06 16:52] LABS: ALT 36 U/L (21-72); AST 29 U/L (17-59); Albumin 3.5 g/dL (3.5-5.0); Alkaline Phosphatase 106 U/L (38-126); Anion Gap 9 mmol/L; Blood Urea Nitrogen 20 mg/dL (9-20); Calcium 9.1 mg/dL (8.4-10.2); Carbon Dioxide 23 mmol/L (22-30); Chloride 109 mmol/L (98-107); Glucose 132 mg/dL (74-99); Magnesium 1.8 mg/dL (1.6-2.3); Potassium 4.1 mmol/L (3.5-5.1); Sodium 141 mmol/L (137-145); Total Bilirubin 1.2 mg/dL (0.2-1.3); Total Protein 6.2 g/dL (6.3-8.2)
[2018-10-06 16:59] LABS: Creatine Kinase 75 U/L (55-170)
--- NOTE | 2018-10-06 16:59 | XR ---
EXAMINATION TYPE: XR chest 2V DATE OF EXAM: 10/06/2018 COMPARISON: Yesterday HISTORY: Pneumonia short of breath TECHNIQUE: Frontal and lateral views of the chest are obtained. FINDINGS: Heart and mediastinum are normal. There is poor inspiration. There is no heart failure. Th ere is some infiltrate in the left lower lobe behind the heart. There is some blunting of the posteri or costophrenic angles. IMPRESSION: Pleural reaction at the lung bases. Point separation. Increasing infiltrate in the left lower lobe compared to yesterday.
[2018-10-06 17:10] LABS: INR 0.9 (<1.2); Partial Thromboplastin Time 23.5 sec (22.0-30.0); Prothrombin Time 9.8 sec (9.0-12.0)
[2018-10-06 17:12] LABS: Creatine Kinase MB 1.3 ng/mL (0.0-2.4); Troponin I <0.012 ng/mL (0.000-0.034)
[2018-10-06 17:13] LABS: D-Dimer 0.87 mg/L FEU (<0.60)
--- NOTE | 2018-10-06 17:37 | CT ---
EXAMINATION TYPE: CT angio chest DATE OF EXAM: 10/06/2018 5:26 PM COMPARISON: None HISTORY: Chest pain. CT DLP: 269.4 mGycm Automated exposure control for dose reduction was used. CONTRAST: CTA scan of the thorax is performed with IV Contrast, patient injected with 70ml mL of Isovue 370, pu lmonary embolism protocol. There are 3-D post processed images.. 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 There is no evidence of aorti c dissection. There is normal contrast opacification of the pulmonary arteries. There are a few parat yas lymph nodes that measure up to 1 cm. There are few bronchial lymph nodes up to 1 cm. There ar e no hilar masses. There is patchy atelectasis at the posterior lung bases. There is small right pleural effusion. There is no pericardial effusion. Heart appears enlarged.. The bony thorax is intact. IMPRESSION: NO EVIDENCE OF PULMONARY EMBOLISM. BILATERAL LOWER LOBE PULMONARY INFILTRATES AND ATELECTASIS. SMALL RIGHT PLEURAL EFFUSION.
[2018-10-06] MEDS ORDERED: MORPHINE SULFATE 4 MG/ML SYRINGE IVP STA (17:48)
[2018-10-06] MEDS ORDERED: KETOROLAC 30 MG/ML 1 ML VIAL IVP STA (17:48)
[2018-10-06] MEDS ORDERED: PNEUMONIA PROTOCOL UTILIZED 1 EACH MISC PO PRN (19:08)
[2018-10-06] MEDS ORDERED: LEVOFLOXACIN 750MG-D5W PMX 750 MG in DEXTROSE/WATER 1 150ML.BAG IVPB STA (19:08)
[2018-10-06] MEDS ORDERED: PIPERACILLIN-TAZOBACTAM 3.375 GM in SODIUM CHLORIDE 0.9% 100 ML IVPB STA (19:08)
[2018-10-06] MEDS: ACETAMINOPHEN TAB 325 MG TAB PO PRN (19:57)
[2018-10-06 20:27] VITALS: BMI 26.6
[2018-10-06] MEDS: IPRATROPIUM-ALBUTEROL 3 ML NEB INHALATION SCH (21:19)
[2018-10-07] MEDS: PIPERACILLIN-TAZOBACTAM 3.375 GM in SODIUM CHLORIDE 0.9% 100 ML IVPB SCH ×3 (05:40→21:22)
[2018-10-07] MEDS: ACETAMINOPHEN TAB 325 MG TAB PO PRN ×2 (05:45→21:22)
[2018-10-07] MEDS: MORPHINE SULFATE 4 MG/ML SYRINGE IVP PRN ×3 (05:46→18:46)
--- NOTE | 2018-10-07 07:01 | XR ---
EXAMINATION TYPE: XR chest 2V DATE OF EXAM: 10/07/2018 COMPARISON: Chest x-ray and CTA chest from yesterday HISTORY: Pneumonia progress study. TECHNIQUE: Frontal and lateral views of the chest are obtained. FINDINGS: The cardiac silhouette size remains mildly enlarged. There is increasing bibasilar opacity felt to reflect slightly more prominent small to tiny bilateral pleural effusions and worsening biba silar acute infiltrate and/or atelectasis. Upper lungs remain clear without pneumothorax. The osseous structures are intact. IMPRESSION: There is stable mild cardiomegaly with slightly larger small to tiny bilateral pleural e ffusions and increasing bibasilar acute infiltrate and/or atelectasis noted.
[2018-10-07] MEDS: IPRATROPIUM-ALBUTEROL 3 ML NEB INHALATION SCH ×4 (07:15→20:08)
[2018-10-07] MEDS: PROPRANOLOL 40 MG TAB PO SCH ×2 (09:29→21:23)
[2018-10-07] MEDS: PANTOPRAZOLE 40 MG TABLET PO SCH (09:29)
[2018-10-07] MEDS: FINASTERIDE 5 MG TAB PO SCH (09:29)
[2018-10-07] MEDS: MELOXICAM 7.5 MG TAB PO SCH (09:30)
[2018-10-07] MEDS: LOSARTAN 50 MG TAB PO SCH (09:30)
[2018-10-07] MEDS: ENOXAPARIN 40 MG/0.4 ML SYRINGE SQ SCH (09:30)
[2018-10-07] MEDS: MULTIVITAMINS, THERA 1 EACH TAB PO SCH (09:30)
[2018-10-07] MEDS: ATORVASTATIN 20 MG TAB PO SCH (09:30)
--- NOTE | 2018-10-07 11:46 | P.HPIM ---
History of Present Illness H&P Date: 10/07/18 This is a 60-year-old male patient who presented to the emergency room with complaints of chest pain. Patient recently admitted and was workup by cardiology with stress test and was cleared by cardiology for any possible ischemic event. Patient was discharged home on Ceftin for pneumonia. Patient reports he returned home and felt much improved. Patient went to bed and the next morning he woke up with increased chest discomfort. Patient reports a cough but states it is chronic for him and denies any sputum production. Patient denies any fevers at home. The patient presented with a temp of 100.7. Patient's past medical history includes coronary artery disease with stent placement approximately 15 years ago, hyperlipidemia, hypertension, pneumonia and renal disease. Patient denies nicotine dependence. D-dimer elevated on admission 0.87. CT completed showing no evidence of pulmonary embolism. Bilateral lower lobe pulmonary infiltrates and atelectasis. Small right pleural effusion. Chest x-ray completed showing pleural reaction at the lung bases. Points aspiration. Increasing infiltrate in the left lower lobe compared to yesterday. EKG completed showing normal sinus rhythm voltage criteria for LVH may be normal variant. Troponin negative. Patient started on Levaquin and Zosyn. Sputum culture has been ordered DuoNeb breathing treatments ordered. At this time patient is still complaining of some chest discomfort. Patient denies any shortness of breath. Denies nausea vomiting or diarrhea. Patient denies any urinary burning. Patient denies any peripheral edema. Review of Systems Please refer to HPI otherwise unremarkable Past Medical History Past Medical History: Coronary Artery Disease (CAD), Hyperlipidemia, Hypertension, Myocardial Infarction ([place]), Pneumonia, Renal Disease Additional Past Medical History / Comment(s): Multiple kidney stones, Last Myocardial Infarction Date:: 1992 History of Any Multi-Drug Resistant Organisms: None Reported Past Surgical History: Heart Catheterization With Stent Additional Past Surgical History / Comment(s): PCI with stent, lithotripsy and open surgery for stone removals, colonoscopy Past Anesthesia/Blood Transfusion Reactions: Motion Sickness Date of Last Stent Placement:: 1992 Smoking Status: Never smoker - Past Family History Father Family Medical History: Myocardial Infarction ([place]) Additional Family Medical History / Comment(s): Father of a [place] in his 70s. Mother Family Medical History: Myocardial Infarction ([place]) Additional Family Medical History / Comment(s): Mother of a [place] in her late 60s. Medications and Allergies Home Medications Medication Instructions Recorded Confirmed Type Atorvastatin [Lipitor] 20 mg PO DAILY 10/04/18 10/06/18 History Ergocalciferol (Vitamin D2) 50,000 unit PO LENZ 10/04/18 10/06/18 History [Vitamin D2] Finasteride [Proscar] 5 mg PO DAILY 10/04/18 10/06/18 History Fluticasone Nasal Golden [Flonase 2 spr EA NOSTRIL DAILY 10/04/18 10/06/18 History Nasal Golden] Losartan [Cozaar] 50 mg PO DAILY 10/04/18 10/06/18 History Meloxicam 7.5 mg PO DAILY 10/04/18 10/06/18 History Omeprazole 20 mg PO DAILY 10/04/18 10/06/18 History Propranolol [Inderal] 40 mg PO BID 10/04/18 10/06/18 History Cefuroxime Axetil [Ceftin] 500 mg PO BID 5 Days #10 tab 10/05/18 10/06/18 Rx Multivitamins, Thera [Multivitamin 1 tab PO DAILY 10/06/18 10/06/18 History (formulary)] Allergies Allergy/AdvReac Type Severity Reaction Status Date / Time No Known Allergies Allergy Verified 10/06/18 16:01 Physical Exam Vitals: Vital Signs Temp Pulse Pulse Resp BP BP Pulse Ox 10/07/18 11:21 69 10/07/18 11:10 68 10/07/18 07:28 71 10/07/18 07:16 69 93 L 10/07/18 05:43 99.4 F 95 18 153/72 93 L 10/06/18 22:49 98.8 F 95 20 114/56 94 L 10/06/18 21:34 67 10/06/18 21:19 67 94 L 10/06/18 19:52 100.7 F H 80 20 126/65 94 L 10/06/18 17:50 93 18 131/79 93 L 10/06/18 16:27 60 10/06/18 16:12 60 10/06/18 15:26 99.8 F H 58 L 20 154/77 99 Intake and Output 10/06/18 10/07/18 10/07/18 22:59 06:59 14:59 Other: # Voids 1 2 Weight 79.288 kg Head normocephalic Neck supple Lungs clear to auscultation bilaterally no wheezing or crackles Heart regular rate and rhythm S1-S2, no rub or gallop Abdomen is soft nontender nondistended positive bowel sounds no hepatosplenomegaly Extremities no edema Neuro alert and orientated to 3 Results CBC & Chem 7: 10/06/18 16:15 10/06/18 16:15 Labs: Abnormal Lab Results - Last 24 Hours (Table) 10/06/18 10/06/18 10/06/18 Range/Units 16:15 16:15 16:15 WBC 14.0 H (3.8-10.6) k/uL Neutrophils # 12.4 H (1.3-7.7) k/uL Lymphocytes # 0.6 L (1.0-4.8) k/uL D-Dimer 0.87 H (<0.60) mg/L FEU Chloride 109 H (98-107) mmol/L Glucose 132 H (74-99) mg/dL Total Protein 6.2 L (6.3-8.2) g/dL Thrombosis Risk Factor Assmnt - Choose All That Apply Any of the Below Risk Factors Present?: Yes Each Factor Represents 1 point: Obesity (BMI >25) Each Risk Factor Represents 2 Points: Age 61-74 years Other congenital or acquired thrombophilia - If yes, enter type in comment: No Thrombosis Risk Factor Assessment Total Risk Factor Score: 3 Thrombosis Risk Factor Assessment Level: Moderate Risk Assessment and Plan Assessment: 1. Increased chest discomfort related to pneumonia. Patient recently admitted and was seen by cardiology. Stress test completed on 10/04/2018 which revealed a normal left ventricle systolic function and negative for any reversible ischemia. Troponin negative. Chest CTA completed showing no evidence of pulmonary embolism. Bilateral lower lobe pulmonary infiltrates and atelectasis. Small right pleural effusion. Sputum culture ordered. Patient initially febrile with temp 100.7. White blood cell elevated at 14.0. Patient was started on Levaquin and Zosyn. 2. History of coronary artery disease with previous stent placement. Patient reports is approximately 15 years ago. Patient not on any anticoagulation. Patient recently seen by cardiology no change to medication 3. History of hyperlipidemia 4. Essential hypertension DVT prophylaxis Lovenox. GI prophylaxis Protonix Time with Patient: Greater than 30 (Greater than 60% of the total time spent in counseling and coordination of care. I performed an examination of the patient and discussed their management with the Nurse Practitioner. I have reviewed the Nurse Practitioner's notes and agree with the documented findings and plan of care)
[2018-10-07] MEDS: LEVOFLOXACIN 750 MG TAB PO SCH (21:22)
[2018-10-08] MEDS: PIPERACILLIN-TAZOBACTAM 3.375 GM in SODIUM CHLORIDE 0.9% 100 ML IVPB SCH ×3 (03:36→23:24)
[2018-10-08] MEDS: MORPHINE SULFATE 4 MG/ML SYRINGE IVP PRN (03:36)
[2018-10-08] MEDS: IPRATROPIUM-ALBUTEROL 3 ML NEB INHALATION SCH ×4 (07:58→19:40)
[2018-10-08] MEDS: ENOXAPARIN 40 MG/0.4 ML SYRINGE SQ SCH (08:38)
[2018-10-08] MEDS: ATORVASTATIN 20 MG TAB PO SCH (08:40)
[2018-10-08] MEDS: MELOXICAM 7.5 MG TAB PO SCH (08:40)
[2018-10-08] MEDS: PANTOPRAZOLE 40 MG TABLET PO SCH (08:40)
[2018-10-08] MEDS: FINASTERIDE 5 MG TAB PO SCH (08:40)
[2018-10-08] MEDS: LOSARTAN 50 MG TAB PO SCH (08:40)
[2018-10-08] MEDS: MULTIVITAMINS, THERA 1 EACH TAB PO SCH (08:40)
[2018-10-08] MEDS: PROPRANOLOL 40 MG TAB PO SCH (08:41)
[2018-10-08] MEDS: ACETAMINOPHEN TAB 325 MG TAB PO PRN (08:47)
[2018-10-08] MEDS ORDERED: ERGOCALCIFEROL 50,000 UNIT CAP PO SCH (09:00)
[2018-10-08 11:06] LABS: Basophils % (A) 0 %; Eosinophils % (A) 0 %; HCT 36.4 % (39.0-53.0); HGB 12.2 gm/dL (13.0-17.5); Lymphocytes # (A) 0.6 k/uL (1.0-4.8); Lymphocytes % (A) 6 %; MCH 30.4 pg (25.0-35.0); MCHC 33.5 g/dL (31.0-37.0); MCV 90.7 fL (80.0-100.0); Mean Platelet Volume 6.9; Monocytes # (A) 0.7 k/uL (0-1.0); Monocytes % (A) 6 %; Neutrophils # (A) 8.9 k/uL (1.3-7.7); Neutrophils % (A) 86 %; Platelet Count 223 k/uL (150-450); RBC 4.01 m/uL (4.30-5.90); RDW 12.5 % (11.5-15.5); WBC 10.3 k/uL (3.8-10.6)
[2018-10-08 11:19] LABS: ALT 52 U/L (21-72); AST 42 U/L (17-59); Albumin 2.8 g/dL (3.5-5.0); Alkaline Phosphatase 121 U/L (38-126); Anion Gap 8 mmol/L; Blood Urea Nitrogen 22 mg/dL (9-20); Calcium 8.6 mg/dL (8.4-10.2); Carbon Dioxide 23 mmol/L (22-30); Chloride 107 mmol/L (98-107); Glucose 115 mg/dL (74-99); Potassium 3.7 mmol/L (3.5-5.1); Sodium 138 mmol/L (137-145); Total Protein 5.5 g/dL (6.3-8.2)
--- NOTE | 2018-10-08 11:38 | P.PN ---
Subjective Progress Note Date: 10/08/18 This is a 60-year-old male patient who presented to the emergency room with complaints of chest pain. Patient recently admitted and was workup by cardiology with stress test and was cleared by cardiology for any possible ischemic event. Patient was discharged home on Ceftin for pneumonia. Patient reports he returned home and felt much improved. Patient went to bed and the next morning he woke up with increased chest discomfort. Patient reports a cough but states it is chronic for him and denies any sputum production. Patient denies any fevers at home. The patient presented with a temp of 100.7. Patient's past medical history includes coronary artery disease with stent placement approximately 15 years ago, hyperlipidemia, hypertension, pneumonia and renal disease. Patient denies nicotine dependence. D-dimer elevated on admission 0.87. CT completed showing no evidence of pulmonary embolism. Bilateral lower lobe pulmonary infiltrates and atelectasis. Small right pleural effusion. Chest x-ray completed showing pleural reaction at the lung bases. Points aspiration. Increasing infiltrate in the left lower lobe compared to yesterday. EKG completed showing normal sinus rhythm voltage criteria for LVH may be normal variant. Troponin negative. Patient started on Levaquin and Zosyn. Sputum culture has been ordered DuoNeb breathing treatments ordered. At this time patient is still complaining of some chest discomfort. Patient denies any shortness of breath. Denies nausea vomiting or diarrhea. Patient denies any urinary burning. Patient denies any peripheral edema. On 10/08/2018 patient is currently resting comfortably in bed. Patient is complaining of some right pleuritic pain associated with deep breathing. Discussed case with pulmonary services. Per pulmonary services likely viral in etiology that has progressed to bacterial pneumonia. Influenza orders have been placed IV steroids have been added per pulmonary. At this time patient denies shortness breath or sputum production. Patient denies nausea vomiting or diarrhea. Patient denies any urinary burning or frequency Objective - Vital Signs Vital signs: Vital Signs Temp 98.8 F 10/08/18 05:57 Pulse 84 10/08/18 08:11 Resp 20 10/08/18 05:57 BP 130/67 10/08/18 05:57 Pulse Ox 94 L 10/08/18 07:58 Intake & Output 10/07/18 10/08/18 10/08/18 18:59 06:59 18:59 Intake Total 900 Balance 900 Intake: IV 900 Piperacillin-Tazobactam 3 100 .375 gm In Sodium Chloride 0.9% 100 ml @ 25 mls/hr IVPB Q8H [facility] Rx#: [id number] Sodium Chloride 0.9% 1, 800 000 ml @ 100 mls/hr IV . Q10H [facility] Rx#:[id number] Other: # Voids 3 - Exam Head normocephalic Neck supple Lungs diminished bilaterally Heart regular rate and rhythm S1-S2, no rub or gallop Abdomen is soft nontender nondistended positive bowel sounds no hepatosplenomegaly Extremities no edema Neuro alert and orientated to 3 - Labs CBC & Chem 7: 10/08/18 10:12 10/08/18 10:12 Labs: Abnormal Lab Results - Last 24 Hours (Table) 10/08/18 10/08/18 Range/Units 10:12 10:12 RBC 4.01 L (4.30-5.90) m/uL Hgb 12.2 L (13.0-17.5) gm/dL Hct 36.4 L (39.0-53.0) % Neutrophils # 8.9 H (1.3-7.7) k/uL Lymphocytes # 0.6 L (1.0-4.8) k/uL BUN 22 H (9-20) mg/dL Glucose 115 H (74-99) mg/dL Total Protein 5.5 L (6.3-8.2) g/dL Albumin 2.8 L (3.5-5.0) g/dL Microbiology - Last 24 Hours (Table) 10/06/18 16:15 Blood Culture - Preliminary Blood No Growth after 24 hours Assessment and Plan Assessment: 1. Increased chest discomfort related to pneumonia. Patient recently admitted and was seen by cardiology. Stress test completed on 10/04/2018 which revealed a normal left ventricle systolic function and negative for any reversible ischemia. Troponin negative. Chest CTA completed showing no evidence of pulmonary embolism. Bilateral lower lobe pulmonary infiltrates and atelectasis. Small right pleural effusion. Sputum culture ordered. Patient initially febrile with temp 100.7. White blood cell elevated at 14.0. Patient was started on Levaquin and Zosyn. IV steroids have been added per pulmonary. Low-grade temps 99.4 this AM. Influenza ordered per infectious disease. Dr. Russell has been consulted per infectious disease 2. History of coronary artery disease with previous stent placement. Patient reports is approximately 15 years ago. Patient not on any anticoagulation. Patient recently seen by cardiology no change to medication 3. History of hyperlipidemia 4. Essential hypertension DVT prophylaxis Lovenox. GI prophylaxis Protonix I performed an examination of the patient and discussed their management with the Nurse Practitioner. I have reviewed the Nurse Practitioner's notes and agree with the documented findings and plan of care
[2018-10-08] MEDS: methylPREDNISolone SOD SUCCI 125 MG/2 ML VIAL IV SCH ×3 (11:53→23:23)
--- NOTE | 2018-10-08 19:02 | CONS ---
CONSULTATION Leo Rodriguez is a 67-year-old male who presented to the ED at [facility] with chest pain. This occurred when he took a deep breath. It was located more on the right than the left. He had recently been seen at the hospital and at that time was discharged. It was thought to not be due to cardiac etiology. He has an occasional cough and no discrete fever. However, he had been feeling quite weak. PAST MEDICAL HISTORY: Positive for coronary artery disease, hyperlipidemia, hypertension, myocardial infarction, multiple kidney stones, history of previous cardiac stent placement, lithotripsy. FAMILY HISTORY: Positive for coronary artery disease in his father who in his 70s of an [place]. Mother had a history of myocardial infarction and in her 60s. SOCIAL HISTORY: Patient is a never smoker. 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 MEDICATIONS: Prior to admission were propranolol, omeprazole, multivitamin, meloxicam, Cozaar, Flonase, Proscar, vitamin D2, Ceftin, and Lipitor. REVIEW OF SYSTEMS: Noncontributory. PHYSICAL EXAMINATION: Patient is lying in bed. Respiratory rate is 18, pulse rate 79, temperature 98.9, blood pressure 138/69, O2 saturation on room air is 94%. HEENT reveals pupils are equal. Chest reveals decreased breath sounds on the right base with dullness to percussion. Cardiovascular system reveals an S1, S2. No S3, no S4. Abdomen is soft. There is no pedal edema. LABS: Reveal a white count of 10.3, hemoglobin of 12.2. Sodium 138, potassium 3.7, chloride 107, bicarb 23, BUN 22, creatinine 0.89. CT scan of the chest was personally reviewed by me which shows small pleural effusions bilaterally, more on the right than the left with an infiltrate in the right lung base and some scattered interstitial changes in the lower zones. IMPRESSION: At this time: 1. Right lower lobe pneumonia. 2. Pleuritis, possibly secondary to recent viral illness. 3. Coronary artery disease. At this point in time, would add IV steroids. Continue antibiotics. Have ID further evaluate the patient. Check an PJ and rheumatoid factor. Keep him on GI and DVT prophylaxis. Depending on how he does, we should make further changes to his care. I would like to thank you for allowing me the privilege of participating in his care. MMODL / IJN: [id number] /
[2018-10-08 20:50] LABS: Glucose,Whole Blood 193 mg/dL (75-99)
[2018-10-08] MEDS: LEVOFLOXACIN 750 MG TAB PO SCH (23:24)
[2018-10-09] MEDS: PROPRANOLOL 40 MG TAB PO SCH ×3 (02:38→21:20)
--- NOTE | 2018-10-09 05:20 | CONS ---
CONSULTATION DATE OF SERVICE: 10/08/2018 REASON FOR CONSULTATION: Pneumonia. HISTORY OF PRESENT ILLNESS: The patient is a 67-year-old male who was recently admitted to this facility where the patient presented with right anterior chest pain. Pain has been mostly right lower side. The patient did have evaluation by cycling instructor and he did have stress test that was negative for reversible ischemia. The patient was subsequently discharged home on the . The patient presented back the next day with persistent pain mostly in the right lower chest area. Patient describes the pain to be dull aching to sharp with intensity about 6 out of 10 and no radiation. The patient did have very minimal cough and not bringing up any sputum. Patient denies having any URI symptoms. No nausea, no vomiting, or any diarrhea. Denies having any choking on the food. With these symptoms, the patient was evaluated by the ER physician. On arrival to the ER, the patient did have a low-grade fever of 100.7. The patient did not have significant tachycardia. The patient's white count elevated at 14,000. Influenza serology was negative. The patient did have a chest x-ray followed by CT angiogram. CT angiogram was negative for PE, however, showed bilateral lower lobe pulmonary infiltrate, small right pleural effusion. The patient had been diagnosed with pneumonia. He was started on Zosyn and Levaquin and admitted to the hospital. Infectious Disease was consulted for further recommendation regarding antibiotic therapy. REVIEW OF SYSTEMS: Positive points have been mentioned in HPI. Rest of the 14 systems have been negative. PAST MEDICAL HISTORY: Coronary artery disease, hypertension, hyperlipidemia, CT, pneumonia, history of kidney stone. PAST SURGICAL HISTORY: PTCA with stent, lithotripsy, colonoscopy. SOCIAL HISTORY: Denies any smoking, drinking, or drug use. FAMILY HISTORY: Both parents have history of CT. ALLERGIES: No known drug allergies. MEDICATIONS: Medications include the patient is currently on Tylenol, DuoNeb, Lipitor, Lovenox, vitamin D2, Proscar, Levaquin, Cozaar, Mobic, Solu-Medrol, morphine sulfate, Theragran, Protonix, and Zosyn. PHYSICAL EXAMINATION: On examination, blood pressure 132/74 with a pulse of 83, temperature 98.3. He is 93% on room air. General description is an elderly male up in the bed in no distress. No tachypnea or accessory muscle of respiration use. HEENT examination shows no pallor or scleral icterus. Oral mucous membrane is dry. No pharyngeal erythema or thrush. NECK: Trachea is central. No thyromegaly. HEART: S1, S2. Regular rate and rhythm. LUNGS: Unlabored breathing with decreased breath sounds at the bases. No wheeze or crackle. ABDOMEN: Soft. No tenderness. No guarding or rigidity. EXTREMITIES: No edema of feet. SKIN EXAMINATION: No rash or mass palpable. NEUROLOGICALLY: The patient is awake, alert, oriented x3. Mood and affect normal. LABS: Hemoglobin is 14.1, white count 14,000. BUN of 22, creatinine 0.89. Electrolytes are normal. Liver enzymes are normal. Influenza serology negative. The patient's blood culture obtained currently pending. DIAGNOSTIC IMPRESSION AND PLAN: Patient admitted to the hospital with sepsis in a patient who did have a fever of 100.7. The patient did have a mild tachycardia, heart rate 94, leukocytosis meeting criteria for sepsis. Source is likely pneumonia likely community acquired and less likely gram-negative infection in this patient admitted for the same symptoms and was worked up for cardiac etiology. PLAN: 1. We will try to obtain sputum for Gram stain culture and sensitivity. 2. Zosyn 3.375 grams q.8 positive for community acquired as well as gram negative pneumonia. 3. We will follow up on clinical condition and culture to further adjust medication if needed. Thank you for this consultation. Will follow this patient along with you. MMODL / IJN: [id number] /
[2018-10-09] MEDS: methylPREDNISolone SOD SUCCI 125 MG/2 ML VIAL IV SCH ×2 (06:46→12:55)
[2018-10-09] MEDS: PIPERACILLIN-TAZOBACTAM 3.375 GM in SODIUM CHLORIDE 0.9% 100 ML IVPB SCH ×3 (06:48→21:20)
[2018-10-09] MEDS: IPRATROPIUM-ALBUTEROL 3 ML NEB INHALATION SCH ×4 (07:25→19:33)
[2018-10-09 07:40] LABS: Basophils % (A) 0 %; Eosinophils % (A) 0 %; HGB 13.4 gm/dL (13.0-17.5); Lymphocytes # (A) 0.7 k/uL (1.0-4.8); Lymphocytes % (A) 5 %; MCH 30.3 pg (25.0-35.0); MCHC 33.4 g/dL (31.0-37.0); MCV 90.7 fL (80.0-100.0); Mean Platelet Volume 6.5; Monocytes # (A) 0.2 k/uL (0-1.0); Monocytes % (A) 1 %; Neutrophils # (A) 12.5 k/uL (1.3-7.7); Neutrophils % (A) 93 %; Platelet Count 268 k/uL (150-450); RBC 4.41 m/uL (4.30-5.90); RDW 12.2 % (11.5-15.5); WBC 13.4 k/uL (3.8-10.6)
[2018-10-09 07:57] LABS: ALT 75 U/L (21-72); AST 51 U/L (17-59); Albumin 2.9 g/dL (3.5-5.0); Alkaline Phosphatase 130 U/L (38-126); Anion Gap 9 mmol/L; Blood Urea Nitrogen 22 mg/dL (9-20); Calcium 9.2 mg/dL (8.4-10.2); Carbon Dioxide 23 mmol/L (22-30); Chloride 111 mmol/L (98-107); Glucose 151 mg/dL (74-99); Potassium 3.8 mmol/L (3.5-5.1); Sodium 143 mmol/L (137-145); Total Bilirubin 0.6 mg/dL (0.2-1.3); Total Protein 5.5 g/dL (6.3-8.2)
[2018-10-09] MEDS: ENOXAPARIN 40 MG/0.4 ML SYRINGE SQ SCH (09:28)
[2018-10-09] MEDS: MELOXICAM 7.5 MG TAB PO SCH (09:28)
[2018-10-09] MEDS: LOSARTAN 50 MG TAB PO SCH (09:29)
[2018-10-09] MEDS: FINASTERIDE 5 MG TAB PO SCH (09:29)
[2018-10-09] MEDS: PANTOPRAZOLE 40 MG TABLET PO SCH (09:29)
--- NOTE | 2018-10-09 10:57 | P.PN ---
Subjective Progress Note Date: 10/09/18 This is a 60-year-old male patient who presented to the emergency room with complaints of chest pain. Patient recently admitted and was workup by cardiology with stress test and was cleared by cardiology for any possible ischemic event. Patient was discharged home on Ceftin for pneumonia. Patient reports he returned home and felt much improved. Patient went to bed and the next morning he woke up with increased chest discomfort. Patient reports a cough but states it is chronic for him and denies any sputum production. Patient denies any fevers at home. The patient presented with a temp of 100.7. Patient's past medical history includes coronary artery disease with stent placement approximately 15 years ago, hyperlipidemia, hypertension, pneumonia and renal disease. Patient denies nicotine dependence. D-dimer elevated on admission 0.87. CT completed showing no evidence of pulmonary embolism. Bilateral lower lobe pulmonary infiltrates and atelectasis. Small right pleural effusion. Chest x-ray completed showing pleural reaction at the lung bases. Points aspiration. Increasing infiltrate in the left lower lobe compared to yesterday. EKG completed showing normal sinus rhythm voltage criteria for LVH may be normal variant. Troponin negative. Patient started on Levaquin and Zosyn. Sputum culture has been ordered DuoNeb breathing treatments ordered. At this time patient is still complaining of some chest discomfort. Patient denies any shortness of breath. Denies nausea vomiting or diarrhea. Patient denies any urinary burning. Patient denies any peripheral edema. On 10/08/2018 patient is currently resting comfortably in bed. Patient is complaining of some right pleuritic pain associated with deep breathing. Discussed case with pulmonary services. Per pulmonary services likely viral in etiology that has progressed to bacterial pneumonia. Influenza orders have been placed IV steroids have been added per pulmonary. At this time patient denies shortness breath or sputum production. Patient denies nausea vomiting or diarrhea. Patient denies any urinary burning or frequency On 10/09/2018 patient is currently resting in bed. Patient reports he feels much improved. At this time patient denies chest pain or shortness of breath. Patient denies nausea vomiting or diarrhea. Patient denies any urinary burning or frequency. Repeat chest x-ray ordered. Discussed with pulmonary services. Objective - Vital Signs Vital signs: Vital Signs Temp 98.5 F 10/09/18 05:55 Pulse 78 10/09/18 08:00 Resp 16 10/09/18 08:00 BP 152/65 10/09/18 05:55 Pulse Ox 94 L 10/09/18 07:25 Intake & Output 10/08/18 10/09/18 10/09/18 18:59 06:59 18:59 Intake Total 100 Balance 100 Intake: IV 100 Piperacillin-Tazobactam 3 100 .375 gm In Sodium Chloride 0.9% 100 ml @ 25 mls/hr IVPB Q8H [facility] Rx#: [id number] Other: # Voids 3 2 # Bowel Movements 1 - Exam Head normocephalic Neck supple Lungs diminished bilaterally Heart regular rate and rhythm S1-S2, no rub or gallop Abdomen is soft nontender nondistended positive bowel sounds no hepatosplenomegaly Extremities no edema Neuro alert and orientated to 3 - Labs CBC & Chem 7: 10/09/18 07:07 10/09/18 07:07 Labs: Abnormal Lab Results - Last 24 Hours (Table) 10/08/18 10/08/18 10/08/18 Range/Units 10:12 10:12 20:45 WBC (3.8-10.6) k/uL RBC 4.01 L (4.30-5.90) m/uL Hgb 12.2 L (13.0-17.5) gm/dL Hct 36.4 L (39.0-53.0) % Neutrophils # 8.9 H (1.3-7.7) k/uL Lymphocytes # 0.6 L (1.0-4.8) k/uL Chloride (98-107) mmol/L BUN 22 H (9-20) mg/dL Glucose 115 H (74-99) mg/dL POC Glucose (mg/dL) 193 H (75-99) mg/dL ALT (21-72) U/L Alkaline Phosphatase (38-126) U/L Total Protein 5.5 L (6.3-8.2) g/dL Albumin 2.8 L (3.5-5.0) g/dL 10/09/18 10/09/18 Range/Units 07:07 07:07 WBC 13.4 H (3.8-10.6) k/uL RBC (4.30-5.90) m/uL Hgb (13.0-17.5) gm/dL Hct (39.0-53.0) % Neutrophils # 12.5 H (1.3-7.7) k/uL Lymphocytes # 0.7 L (1.0-4.8) k/uL Chloride 111 H (98-107) mmol/L BUN 22 H (9-20) mg/dL Glucose 151 H (74-99) mg/dL POC Glucose (mg/dL) (75-99) mg/dL ALT 75 H (21-72) U/L Alkaline Phosphatase 130 H (38-126) U/L Total Protein 5.5 L (6.3-8.2) g/dL Albumin 2.9 L (3.5-5.0) g/dL Microbiology - Last 24 Hours (Table) 10/06/18 16:15 Blood Culture - Preliminary Blood No Growth after 48 hours Assessment and Plan Assessment: 1. Increased chest discomfort related to pneumonia. Patient recently admitted and was seen by cardiology. Stress test completed on 10/04/2018 which revealed a normal left ventricle systolic function and negative for any reversible ischemia. Troponin negative. Chest CTA completed showing no evidence of pulmonary embolism. Bilateral lower lobe pulmonary infiltrates and atelectasis. Small right pleural effusion. Sputum culture ordered. Patient initially febrile with temp 100.7. White blood cell elevated at 14.0. Patient was started on Levaquin and Zosyn. IV steroids have been added per pulmonary. Patient has remained afebrile. Per infectious disease, Zosyn has been added for antibiotic coverage. Sputum culture has been ordered. Blood culture currently negative 2. History of coronary artery disease with previous stent placement. Patient reports is approximately 15 years ago. Patient not on any anticoagulation. Patient recently seen by cardiology no change to medication 3. History of hyperlipidemia 4. Essential hypertension DVT prophylaxis Lovenox. GI prophylaxis Protonix I performed an examination of the patient and discussed their management with the Nurse Practitioner. I have reviewed the Nurse Practitioner's notes and agree with the documented findings and plan of care
--- NOTE | 2018-10-09 12:51 | XR ---
EXAMINATION TYPE: XR chest 2V DATE OF EXAM: 10/09/2018 COMPARISON: CTA chest from 3 days ago. Most recent chest x-ray 2 days ago. HISTORY: Cough. TECHNIQUE: Frontal and lateral views of the chest are obtained. FINDINGS: There are persistent small to tiny bilateral pleural effusions with blunting of bilateral posterior costophrenic angles. There is new right infrahilar linear atelectasis. No pneumothorax is s een bilaterally. The cardiac silhouette size remains within normal limits. The osseous structures a re intact. IMPRESSION: Persistent small to tiny bilateral pleural effusions with new right hilar linear atelect asis.
[2018-10-09] MEDS: MULTIVITAMINS, THERA 1 EACH TAB PO SCH (12:56)
--- NOTE | 2018-10-09 13:17 | P.PN ---
Subjective Progress Note Date: 10/09/18 HPI: This is a 67-year-old male who presented to the emergency department, Patria Jackson with chest pain. This occurred when he took a deep breath. It was located more on the right than the left. He had recently been seen in the hospital and at that time was discharged. She was thought to not be a cardiac etiology. He has occasional cough and no discrete fever. He had been feeling quite weak recently he does have a history of CAD, hyperlipidemia, hypertension, [place], multiple kidney stones, previous cardiac stent placement and lithotripsy. He has never been a smoker Interval history: 10/09/18-patient is being seen examined and evaluated today on rounds. He is resting up in bed on room air. Denies any shortness of breath cough or congestion today. He did have a chest x-ray today which revealed persistent small tiny bilateral pleural effusions with new right hilar linear atelectasis. The patient states he feels his breathing is at baseline. He is requesting to go home. Infectious diseases following the patient is well. Afebrile no further complaints. Objective - Vital Signs Vital signs: Vital Signs Temp 98.5 F 10/09/18 05:55 Pulse 78 10/09/18 08:00 Resp 16 10/09/18 08:00 BP 152/65 10/09/18 05:55 Pulse Ox 94 L 10/09/18 07:25 Intake & Output 10/08/18 10/09/18 10/09/18 18:59 06:59 18:59 Intake Total 100 Balance 100 Intake: IV 100 Piperacillin-Tazobactam 3 100 .375 gm In Sodium Chloride 0.9% 100 ml @ 25 mls/hr IVPB Q8H [facility] Rx#: [id number] Other: # Voids 3 2 # Bowel Movements 1 - Exam GENERAL EXAM: Alert, active, comfortable in no apparent distress. HEAD: Normocephalic. EYES: Normal reaction of pupils, equal size. NOSE: Clear with pink turbinates. THROAT: No erythema or exudates. NECK: No masses, no JVD. CHEST: No chest wall deformity. LUNGS: Equal air entry with no crackles, wheeze, rhonchi or dullness. Bases diminished bilaterally CVS: S1 and S2 normal with no audible mumurs, regular rhythm. ABDOMEN: No hepatosplenomegaly, normal bowel sounds, no guarding or rigidity. EXTREMITIES: No edema noted, pedal pulses palpable. CENTRAL NERVOUS SYSTEM: No focal deficits, tone is normal in all 4 extremities. - Labs CBC & Chem 7: 10/09/18 07:07 10/09/18 07:07 Labs: Abnormal Lab Results - Last 24 Hours (Table) 10/08/18 10/09/18 10/09/18 Range/Units 20:45 07:07 07:07 WBC 13.4 H (3.8-10.6) k/uL Neutrophils # 12.5 H (1.3-7.7) k/uL Lymphocytes # 0.7 L (1.0-4.8) k/uL Chloride 111 H (98-107) mmol/L BUN 22 H (9-20) mg/dL Glucose 151 H (74-99) mg/dL POC Glucose (mg/dL) 193 H (75-99) mg/dL ALT 75 H (21-72) U/L Alkaline Phosphatase 130 H (38-126) U/L Total Protein 5.5 L (6.3-8.2) g/dL Albumin 2.9 L (3.5-5.0) g/dL Microbiology - Last 24 Hours (Table) 10/06/18 16:15 Blood Culture - Preliminary Blood No Growth after 48 hours Assessment and Plan Assessment: Assessment Right lower lobe pneumonia Cellulitis possibly secondary to a recent viral illness Small bilateral pleural effusions CAD Plan Patient is stable from a pulmonary standpoint Medications have been reviewed and will be continued as ordered. Chest x-ray reviewed Influenza swab negative Antibiotics and steroid taper Continue with pulmonary hygiene, coughing and deep breathing exercises, and supportive care. Supplemental oxygen to maintain oxygen saturations of 92% or better. Continue nebulizer treatments. GI and DVT prophylaxis. We will continue to monitor labs/results and adjust treatment as necessary. Further recommendations pending. I, the signing physician performed an examination of the patient, discussed and directed their management with the nurse practitioner. I have reviewed the nurse practitioner's note and agree with the documented findings, orders and plan of care. Nurse Practitioner acting as scribe for the signing physician
--- NOTE | 2018-10-09 14:59 | CDI ---
Documentation Clarification Form Date: 10/09/2018 2:30:00 PM From: Nasrin Helms RN, CCDS Admit Date: 10/06/2018 7:09:00 PM Patient Name: Leo Rodriguez Visit Number: [id number] Discharge Date: ATTENTION: The Clinical Documentation Specialists (CDI) and [facility] Coding Staff appreciate your assistance in clarifying documentation. Please respond to the clarification below the line at the bottom and electronically sign. The CDI & [facility] Coding staff will review the response and follow-up if needed. Please note: Queries are made part of the Legal Health Record. If you have any questions, please contact the author of this message via ITS. Dr. Sary Martinez The patient presented with complaints of right anterior chest pain. History/Risk Factors: CAD, Hypertension, Renal Disease Clinical Indicators: Presented with persistent pain mostly in the right lower chest area. On arrival to ER, the patient did have a low-grade fever at 14,000. significant tachycardia and chest x-ray showed bilateral lower lobe pulmonary infiltrate. Blood cultures: Negative to date Vitals signs on admission: 126/65 20 100.7 Other Clinical Indicators: Recent admission for pneumonia Treatment: Zosyn IV Monitor Labs, Vital signs Sputum Culture Pending ID Consult: 10/08/18: Admitted to hospital with sepsis in a patient who did have a fever of 100.7. The patient did have a mild tachycardia, heart rate 94, leukocytosis meeting criteria for sepsis. Source is likely pneumonia likely community acquired and less likely gram-negative infection In your professional opinion, please clarify if these findings signify one of the following conditions, whether the condition is POA, and cause, if known: Condition Sepsis ruled out Sepsis Severe Sepsis Other, please specify Unable to determine Present on Admission Yes No Identify the (suspected) organism Link or clarify if there is associated (due to/with): Organ failure SIRS Criteria (2 or more of the following may indicate SIRS): -Temperature < 96.8F (36C) or > 101.0F (38.3C) -Heart Rate > 90 bpm -Respiratory Rate > 20 breaths/min or PaCO2 < 32 mmHg -White Blood Cell Count > 12,000 or < 4,000 cells/mm3 or > 10% bands -Lactate >2.0 mmol/L (>4.0 is equivalent to septic shock) (Last Revision: December 2017) Sepsis ruled out MTDD
[2018-10-09] MEDS: methylPREDNISolone SOD SUCCI 40 MG/ML 1 ML VIAL IV SCH ×2 (16:34→23:26)
[2018-10-09] MEDS: LEVOFLOXACIN 750 MG TAB PO SCH (21:20)
[2018-10-10] MEDS: PIPERACILLIN-TAZOBACTAM 3.375 GM in SODIUM CHLORIDE 0.9% 100 ML IVPB SCH ×2 (04:14→12:29)
[2018-10-10 05:45] VITALS: BP 141/77; RESP 16; TEMP 98.1
--- NOTE | 2018-10-10 05:51 | PN ---
PROGRESS NOTE DATE OF SERVICE: 10/09/2018 REASON FOR FOLLOWUP: Pneumonia. INTERVAL HISTORY: The patient is afebrile. The patient's right lower chest pain has decreased in intensity. Denies having any cough or sputum production. No abdominal pain. No nausea, vomiting and no diarrhea. PHYSICAL EXAMINATION: On examination, blood pressure 150/80 with a pulse of 85, temperature 98.3. He is 94% on room air. General description is an elderly male lying in bed in no distress. RESPIRATORY SYSTEM: Unlabored breathing. Decreased breath sounds at the bases, no wheeze. HEART: S1, S2. Regular rate and rhythm. ABDOMEN: Soft, no tenderness. LABS: Hemoglobin 13.4, white count 13.4, BUN of 22, creatinine 0.73. DIAGNOSTIC IMPRESSION AND PLAN: Patient with bilateral lower lobe pneumonia likely community acquired less likely gram- negative . Patient is on Zosyn and Levaquin to continue. The white count is more likely steroid effect and try to obtain a sputum. Continue supportive care. MMODL / IJN: [id number] /
[2018-10-10] MEDS: IPRATROPIUM-ALBUTEROL 3 ML NEB INHALATION SCH ×2 (08:01→11:44)
[2018-10-10] MEDS: PANTOPRAZOLE 40 MG TABLET PO SCH (08:01)
[2018-10-10] MEDS: MELOXICAM 7.5 MG TAB PO SCH (08:01)
[2018-10-10] MEDS: ENOXAPARIN 40 MG/0.4 ML SYRINGE SQ SCH (08:02)
[2018-10-10] MEDS: LOSARTAN 50 MG TAB PO SCH (08:02)
[2018-10-10] MEDS: PROPRANOLOL 40 MG TAB PO SCH (08:02)
[2018-10-10] MEDS: methylPREDNISolone SOD SUCCI 40 MG/ML 1 ML VIAL IV SCH (08:02)
[2018-10-10] MEDS: FINASTERIDE 5 MG TAB PO SCH (08:02)
[2018-10-10 09:39] LABS: Basophils % (A) 0 %; Eosinophils % (A) 0 %; HCT 38.3 % (39.0-53.0); HGB 12.6 gm/dL (13.0-17.5); Lymphocytes # (A) 0.7 k/uL (1.0-4.8); Lymphocytes % (A) 4 %; MCH 30.5 pg (25.0-35.0); MCHC 32.9 g/dL (31.0-37.0); MCV 92.9 fL (80.0-100.0); Mean Platelet Volume 6.6; Monocytes # (A) 0.5 k/uL (0-1.0); Monocytes % (A) 3 %; Neutrophils # (A) 15.9 k/uL (1.3-7.7); Neutrophils % (A) 92 %; Platelet Count 276 k/uL (150-450); RBC 4.12 m/uL (4.30-5.90); RDW 12.3 % (11.5-15.5); WBC 17.3 k/uL (3.8-10.6)
[2018-10-10 09:41] LABS: ALT 186 U/L (21-72); AST 108 U/L (17-59); Albumin 2.7 g/dL (3.5-5.0); Alkaline Phosphatase 115 U/L (38-126); Anion Gap 8 mmol/L; Blood Urea Nitrogen 33 mg/dL (9-20); Calcium 8.8 mg/dL (8.4-10.2); Carbon Dioxide 23 mmol/L (22-30); Chloride 112 mmol/L (98-107); Glucose 168 mg/dL (74-99); Potassium 3.8 mmol/L (3.5-5.1); Sodium 143 mmol/L (137-145); Total Bilirubin 0.4 mg/dL (0.2-1.3); Total Protein 5.2 g/dL (6.3-8.2)
--- NOTE | 2018-10-10 11:43 | P.DS ---
Providers Date of admission: 10/06/18 19:09 Expected date of discharge: 10/10/18 Attending physician: Sary Martinez Consults: 10/07/18 12:33 Consult Physician Routine Consulting Provider: Key Gilmore Consult Reason/Comments: pneumonia Do you want consulting provider notified?: Yes 10/08/18 10:59 Consult Physician Routine Consulting Provider: Francois Russell Consult Reason/Comments: infection Do you want consulting provider notified?: Yes Primary care physician: Julienne Sinclair Hospital Course: Discharge diagnosis 1. Increased chest discomfort related to pneumonia. Patient recently admitted and was seen by cardiology. Stress test completed on 10/04/2018 which revealed a normal left ventricle systolic function and negative for any reversible ischemia. Troponin negative. Chest CTA completed showing no evidence of pulmonary embolism. Bilateral lower lobe pulmonary infiltrates and atelectasis. Small right pleural effusion. Sputum culture ordered. Patient initially febrile with temp 100.7. White blood cell elevated at 14.0. Patient was started on Levaquin and Zosyn. IV steroids have been added per pulmonary. Patient has remained afebrile. Patient will be DC'd on Ceftin for infectious disease. Patient also on prednisone taper per pulmonary services. Patient denies any complaints at this time. Chest pain has resolved. 2. History of coronary artery disease with previous stent placement. Patient reports is approximately 15 years ago. Patient not on any anticoagulation. Patient recently seen by cardiology no change to medication 3. History of hyperlipidemia. Currently on hold due to elevated liver enzymes 4. Essential hypertension 5. AST 108 ALT 186 and alkaline phosphatase 115. Lipitor has been DC'd. Tylenol also DC'd. CMP ordered for 2 days. Patient to follow-up with PCP Hospital course This is a 60-year-old male patient who presented to the emergency room with complaints of chest pain. Patient recently admitted and was workup by cardiology with stress test and was cleared by cardiology for any possible ischemic event. Patient was discharged home on Ceftin for pneumonia. Patient reports he returned home and felt much improved. Patient went to bed and the next morning he woke up with increased chest discomfort. Patient reports a cough but states it is chronic for him and denies any sputum production. Patient denies any fevers at home. The patient presented with a temp of 100.7. Patient's past medical history includes coronary artery disease with stent placement approximately 15 years ago, hyperlipidemia, hypertension, pneumonia and renal disease. Patient denies nicotine dependence. D-dimer elevated on admission 0.87. CT completed showing no evidence of pulmonary embolism. Bilateral lower lobe pulmonary infiltrates and atelectasis. Small right pleural effusion. Chest x-ray completed showing pleural reaction at the lung bases. Points aspiration. Increasing infiltrate in the left lower lobe compared to yesterday. EKG completed showing normal sinus rhythm voltage criteria for LVH may be normal variant. Troponin negative. Patient started on Levaquin and Zosyn. Sputum culture has been ordered DuoNeb breathing treatments ordered. At this time patient is still complaining of some chest discomfort. Patient denies any shortness of breath. Denies nausea vomiting or diarrhea. Patient denies any urinary burning. Patient denies any peripheral edema. On 10/08/2018 patient is currently resting comfortably in bed. Patient is complaining of some right pleuritic pain associated with deep breathing. Discussed case with pulmonary services. Per pulmonary services likely viral in etiology that has progressed to bacterial pneumonia. Influenza orders have been placed IV steroids have been added per pulmonary. At this time patient denies shortness breath or sputum production. Patient denies nausea vomiting or diarrhea. Patient denies any urinary burning or frequency On 10/09/2018 patient is currently resting in bed. Patient reports he feels much improved. At this time patient denies chest pain or shortness of breath. Patient denies nausea vomiting or diarrhea. Patient denies any urinary burning or frequency. Repeat chest x-ray ordered. Discussed with pulmonary services. On 10/10/2018 patient is currently resting in bed. Patient feels 100% improved. Patient denies any complaints at this time. Patient expresses he is eager to go home. Discussed case with pulmonary and infectious disease. Patient has been cleared for discharge. Patient will be DC'd on Ceftin and prednisone taper. Liver enzymes slightly elevated. Lipitor currently DC'd. Repeat CMP For 2 days. This time patient denies chest pain or shortness breath. Patient denies nausea vomiting or diarrhea. Patient denies any urinary burning or frequency. Patient Condition at Discharge: Stable Plan - Discharge Summary Discharge Rx Participant: No New Discharge Prescriptions: New Cefuroxime Axetil [Ceftin] 500 mg PO BID 7 Days #14 tab predniSONE 10 mg PO DIRECTED #30 tab Continue Propranolol [Inderal] 40 mg PO BID Fluticasone Nasal Fisher [Flonase Nasal Fisher] 2 spr EA NOSTRIL DAILY Finasteride [Proscar] 5 mg PO DAILY Ergocalciferol (Vitamin D2) [Vitamin D2] 50,000 unit PO LENZ Omeprazole 20 mg PO DAILY Meloxicam 7.5 mg PO DAILY Losartan [Cozaar] 50 mg PO DAILY Multivitamins, Thera [Multivitamin (formulary)] 1 tab PO DAILY Discontinued Atorvastatin [Lipitor] 20 mg PO DAILY Cefuroxime Axetil [Ceftin] 500 mg PO BID 5 Days #10 tab Discharge Medication List Ergocalciferol (Vitamin D2) [Vitamin D2] 50,000 unit PO LENZ 10/04/18 [History] Finasteride [Proscar] 5 mg PO DAILY 10/04/18 [History] Fluticasone Nasal Fisher [Flonase Nasal Fisher] 2 spr EA NOSTRIL DAILY 10/04/18 [ History] Losartan [Cozaar] 50 mg PO DAILY 10/04/18 [History] Meloxicam 7.5 mg PO DAILY 10/04/18 [History] Omeprazole 20 mg PO DAILY 10/04/18 [History] Propranolol [Inderal] 40 mg PO BID 10/04/18 [History] Multivitamins, Thera [Multivitamin (formulary)] 1 tab PO DAILY 10/06/18 [History ] Cefuroxime Axetil [Ceftin] 500 mg PO BID 7 Days #14 tab 10/10/18 [Rx] predniSONE 10 mg PO DIRECTED #30 tab 10/10/18 [Rx] Follow up Appointment(s)/Referral(s): Key Gilmore DO [Doctor of Osteopathic Medicine] - 1 Week Julienne Sinclair DO [Primary Care Provider] - 1-2 days Ambulatory/Diagnostic Orders: Complete Blood Count w/diff [LAB.AMB] Time Frame: 2 Days, Location: None Selected Comprehensive Metabolic Panel [LAB.AMB] Time Frame: 2 Days, Location: None Selected Activity/Diet/Wound Care/Special Instructions: Activity as tolerated Diet regular. Patient's liver enzymes slightly elevated. Lipitor DC'd upon discharge. Repeat CMP ordered for 2 days. Patient follow-up with PCP Discharge Disposition: HOME SELF-CARE
[2018-10-10 11:47] VITALS: PULSE 74
--- NOTE | 2018-10-10 12:22 | P.PN ---
Subjective Progress Note Date: 10/10/18 HPI: This is a 67-year-old male who presented to the emergency department, Patria Jackson with chest pain. This occurred when he took a deep breath. It was located more on the right than the left. He had recently been seen in the hospital and at that time was discharged. She was thought to not be a cardiac etiology. He has occasional cough and no discrete fever. He had been feeling quite weak recently he does have a history of CAD, hyperlipidemia, hypertension, [place], multiple kidney stones, previous cardiac stent placement and lithotripsy. He has never been a smoker Interval history: 10/09/18-patient is being seen examined and evaluated today on rounds. He is resting up in bed on room air. Denies any shortness of breath cough or congestion today. He did have a chest x-ray today which revealed persistent small tiny bilateral pleural effusions with new right hilar linear atelectasis. The patient states he feels his breathing is at baseline. He is requesting to go home. Infectious diseases following the patient is well. Afebrile no further complaints. 10/10/18- patient is being seen examined and evaluated today on rounds. He is resting up in bed on room air. States he is feeling much better today. He is requesting discharge. His chest x-ray was reviewed from yesterday. All labs and reports have been reviewed. He is afebrile no further complaints. Objective - Vital Signs Vital signs: Vital Signs Temp 98.1 F 10/10/18 05:44 Pulse 74 10/10/18 11:56 Resp 16 10/10/18 08:00 BP 141/77 10/10/18 05:44 Pulse Ox 97 10/10/18 05:44 Intake & Output 10/09/18 10/10/18 10/10/18 18:59 06:59 18:59 Other: # Voids 3 1 - Exam GENERAL EXAM: Alert, active, comfortable in no apparent distress. HEAD: Normocephalic. EYES: Normal reaction of pupils, equal size. NOSE: Clear with pink turbinates. THROAT: No erythema or exudates. NECK: No masses, no JVD. CHEST: No chest wall deformity. LUNGS: Equal air entry with no crackles, wheeze, rhonchi or dullness. Bases diminished bilaterally CVS: S1 and S2 normal with no audible mumurs, regular rhythm. ABDOMEN: No hepatosplenomegaly, normal bowel sounds, no guarding or rigidity. EXTREMITIES: No edema noted, pedal pulses palpable. CENTRAL NERVOUS SYSTEM: No focal deficits, tone is normal in all 4 extremities. - Labs CBC & Chem 7: 10/10/18 09:18 10/10/18 09:18 Labs: Abnormal Lab Results - Last 24 Hours (Table) 10/10/18 10/10/18 Range/Units 09:18 09:18 WBC 17.3 H (3.8-10.6) k/uL RBC 4.12 L (4.30-5.90) m/uL Hgb 12.6 L (13.0-17.5) gm/dL Hct 38.3 L (39.0-53.0) % Neutrophils # 15.9 H (1.3-7.7) k/uL Lymphocytes # 0.7 L (1.0-4.8) k/uL Chloride 112 H (98-107) mmol/L BUN 33 H (9-20) mg/dL Glucose 168 H (74-99) mg/dL AST 108 H (17-59) U/L ALT 186 H (21-72) U/L Total Protein 5.2 L (6.3-8.2) g/dL Albumin 2.7 L (3.5-5.0) g/dL Microbiology - Last 24 Hours (Table) 10/06/18 16:15 Blood Culture - Preliminary Blood No Growth after 72 hours Assessment and Plan Assessment: Assessment Right lower lobe pneumonia Cellulitis possibly secondary to a recent viral illness Small bilateral pleural effusions CAD Plan Patient is stable from a pulmonary standpoint for discharge Medications have been reviewed and will be continued as ordered. Chest x-ray reviewed Influenza swab negative Antibiotics and steroid taper Continue with pulmonary hygiene, coughing and deep breathing exercises, and supportive care. Supplemental oxygen to maintain oxygen saturations of 92% or better. Continue nebulizer treatments. GI and DVT prophylaxis. We will continue to monitor labs/results and adjust treatment as necessary. Further recommendations pending. I, the signing physician performed an examination of the patient, discussed and directed their management with the nurse practitioner. I have reviewed the nurse practitioner's note and agree with the documented findings, orders and plan of care. Nurse Practitioner acting as scribe for the signing physician
[2018-10-10] MEDS: MULTIVITAMINS, THERA 1 EACH TAB PO SCH (12:25)
--- NOTE | 2018-10-10 14:49 | PN ---
PROGRESS NOTE DATE OF SERVICE: 10/10/2018 REASON FOR FOLLOWUP: Pneumonia, likely community-acquired. INTERVAL HISTORY: The patient is currently afebrile. He is breathing comfortably. Patient's right lower chest wall pain has improved. Denies having any shortness of breath. Minimal cough. No abdominal pain, no diarrhea. PHYSICAL EXAMINATION: Blood pressure 141/77 with a pulse of 75, temperature 98.1, he is 97% on room air. General description is an elderly male, up in the chair in no distress. RESPIRATORY SYSTEM: Unlabored breathing, decreased breath sounds in the base, no wheeze. HEART: S1, S2. Regular rate and rhythm. ABDOMEN: Soft, no tenderness. LABS: Hemoglobin 12.1, white count of 17.9, BUN of 33, creatinine of 0.90. DIAGNOSTIC IMPRESSION AND PLAN: Patient with right lower chest likely component of pneumonia likely community-acquired pneumonia. At this time, recommending finish therapy with oral Ceftin 500 mg twice a day for another 5 days with close outpatient followup. MMODL / IJN: [id number] /
== END 2018-10-10 16:00 | disposition home or self-care (01) | DRG 194 ==
LOC: EC 15:18 → 4MS4W 19:09
PROVIDERS: ADMIT Internal Medicine; ATTEND Internal Medicine
DX: J15.9 Unspecified bacterial pneumonia (principal); J98.11 Atelectasis; J11.08 Influenza due to unidentified influenza virus with specified pneumonia; E78.5 Hyperlipidemia, unspecified; I11.0 Hypertensive heart disease with heart failure; I25.10 Atherosclerotic heart disease of native coronary artery without angina pectoris; I25.2 Old myocardial infarction; I50.9 Heart failure, unspecified; Z79.899 Other long term (current) drug therapy; Z82.49 Family history of ischemic heart disease and other diseases of the circulatory system; Z87.01 Personal history of pneumonia (recurrent); Z87.442 Personal history of urinary calculi; Z95.5 Presence of coronary angioplasty implant and graft; Y95 Nosocomial condition
CPT/HCPCS: 36415; 71046; 71275; 80053; 82550; 82553; 83735; 83880; 84484; 85025; 85379; 85610; 85730; 86038; 86431; 87040; 87502; 93005; 94640; 94760; 96361; 96365; 96374; 96375; 99285

== ENCOUNTER → 2018-10-24 | Outpatient (CLI) | payer MEDICARE ==
--- NOTE | 2018-10-24 10:18 | XR ---
EXAMINATION TYPE: XR chest 2V DATE OF EXAM: 10/24/2018 COMPARISON: 10/09/2018 HISTORY: Pleural effusion. Shortness of breath. TECHNIQUE: Frontal and lateral views of the chest are obtained. FINDINGS: The previously seen right perihilar atelectasis and trace pleural effusion have resolved i n the interim. No focal consolidation, pleural effusion or pneumothorax. Mild multilevel degenerative changes of the spine are noted. IMPRESSION: Resolution of the previously seen pleural effusion and right perihilar atelectasis. No c urrent acute cardiopulmonary pathology.
== END | disposition home or self-care (01) ==
LOC: RADXRMAIN 08:54
PROVIDERS: ATTEND Internal Medicine
DX: J90 Pleural effusion, not elsewhere classified (principal); J18.9 Pneumonia, unspecified organism
CPT/HCPCS: 71046

== ENCOUNTER → 2020-02-04 | Outpatient (CLI) | payer MEDICARE ==
--- NOTE | 2020-02-04 09:11 | CT ---
EXAMINATION TYPE: CT chest wo con DATE OF EXAM: 02/04/2020 COMPARISON: CTA chest October 06, 2018 HISTORY: chronic cough, pleural effusion, GERD ORDERED. CT DLP: 303.8 mGycm. Automated Exposure Control for Dose Reduction was Utilized. TECHNIQUE: CT scan of the thorax is performed without IV contrast. FINDINGS: LUNGS: Scattered mild areas of linear scarring and/or atelectasis. No suspicious focal consolidation or groundglass opacity. No pleural effusion or pneumothorax bilaterally. No suspicious nodules or mas ses. MEDIASTINUM: Lack of IV contrast is noted to limit evaluation for mediastinal and especially hilar ad enopathy. There are no definitive greater than 1 cm hilar or mediastinal lymph nodes. No cardiomega ly or pericardial effusion is seen. Moderate to severe three-vessel coronary artery calcification whi ch is noted marked underlying coronary artery disease. Aneurysmal change to ascending aorta up to rou ghly 3.9 cm coronal image 40 is redemonstrated fairly stable. OTHER: Dependent density in gallbladder favors small stones and/or gallbladder sludge. Mild generaliz ed fat replaced atrophy of pancreas. There is 2.0 cm diverticulum along mesenteric aspect portion of duodenum coronal image 33. Hyperdense 1.0 cm peripheral lesion left kidney mid to lower pole level ap proximately 68 favors proteinaceous cyst. IMPRESSION: Mild chronic changes. No suspicious acute pulmonary process. No pleural effusion. No fixe d hiatal hernia. There is ectasia/ascending aortic aneurysm up to 3.9 cm.
== END | disposition home or self-care (01) ==
LOC: RADCTMAIN 08:12
PROVIDERS: ATTEND Internal Medicine Pulmonary Disease
DX: J90 Pleural effusion, not elsewhere classified (principal)
CPT/HCPCS: 71250

== ENCOUNTER → 2020-10-10 | Day surgery (SDC) | payer MEDICARE ==
[2020-10-09 08:42] VITALS: BMI 26.6
[~2020-10-10] MED LIST: GLUCAGON 1 MG/ML VIAL ONE; LACTATED RINGERS 1,000 ML IV SCH; LIDOCAINE 1% (10MG/ML) FOR IV START INTRADERMA ONE; LIDOCAINE 1% INJ 10MG/ML (20 ML MDV) ONE; PROPOFOL 10 MG/ML 20 ML VIAL IV ONE
[2020-10-10 10:16] VITALS: RESP 16; TEMP 97.1
--- NOTE | 2020-10-10 10:26 | P.GSHP ---
History of Present Illness H&P Date: 10/10/20 Chief Complaint: Screening colonoscopy Is a 69-year-old male who presents today for screening colonoscopy. He denies any significant complaints Past Medical History Past Medical History: Coronary Artery Disease (CAD), Hyperlipidemia, Hypertension, Myocardial Infarction ([place]), Pneumonia, Renal Disease Additional Past Medical History / Comment(s): Multiple kidney stones, Last Myocardial Infarction Date:: 1992 History of Any Multi-Drug Resistant Organisms: None Reported Past Surgical History: Heart Catheterization With Stent Additional Past Surgical History / Comment(s): PCI with stent, lithotripsy and open surgery for stone removals, colonoscopy Past Anesthesia/Blood Transfusion Reactions: Motion Sickness Date of Last Stent Placement:: 1992 Smoking Status: Never smoker - Past Family History Father Family Medical History: Myocardial Infarction ([place]) Additional Family Medical History / Comment(s): Father of a [place] in his 70s. Mother Family Medical History: Myocardial Infarction ([place]) Additional Family Medical History / Comment(s): Mother of a [place] in her late 60s. Medications and Allergies Home Medications Medication Instructions Recorded Confirmed Type Ergocalciferol (Vitamin D2) 50,000 unit PO LENZ 10/04/18 10/10/20 History [Vitamin D2] Finasteride [Proscar] 5 mg PO HS 10/04/18 10/10/20 History Losartan [Cozaar] 75 mg PO HS 10/04/18 10/10/20 History Meloxicam 7.5 mg PO DAILY 10/04/18 10/10/20 History Omeprazole 20 mg PO HS 10/04/18 10/10/20 History Propranolol [Inderal] 40 mg PO QAM 10/04/18 10/10/20 History Multivitamins, Thera [Multivitamin 1 tab PO DAILY 10/06/18 10/10/20 History (formulary)] Aspirin 325 mg PO DAILY 10/09/20 10/10/20 History Atorvastatin [Lipitor] 20 mg PO HS 10/09/20 10/10/20 History Ibuprofen 200 mg PO Q8H PRN 10/09/20 10/10/20 History Allergies Allergy/AdvReac Type Severity Reaction Status Date / Time No Known Allergies Allergy Verified 10/10/20 10:03 Surgical - Exam Vital Signs Temp Pulse Resp BP Pulse Ox 97.1 F L 63 16 146/82 98 10/10/20 10:13 10/10/20 10:13 10/10/20 10:13 10/10/20 10:13 10/10/20 10:13 - General well developed, well nourished, no distress - Eyes PERRL - ENT normal pinna - Neck no masses - Respiratory normal expansion - Cardiovascular Rhythm: regular - Abdomen Abdomen: soft, non tender Assessment and Plan Assessment: We'll perform screening colonoscopy
--- NOTE | 2020-10-10 10:41 | P.OP ---
Date of Procedure: 10/10/20 Preoperative Diagnosis: Screening colonoscopy Postoperative Diagnosis: Diverticulosis Procedure(s) Performed: Colonoscopy Anesthesia: MAC Surgeon: Fab Abarca Pathology: none sent Condition: stable Disposition: PACU Description of Procedure: The patient's placed on the endoscopy table lateral position. He received IV sedation. Digital rectal exam was performed which revealed a few external hemorrhoids. Flexible colonoscope was then placed patient anus and passed through the colon. The scope could not be passed beyond the left colon secondary to tortuosity valve. Patient extensive diverticular changes. This point scope was withdrawn and a pediatric scope was placed the patient's anus. The panendoscope also had difficulty passing into the left colon. There is significant diverticular changes of the sigmoid colon with some scarring. At this point scope withdrawn. Diverticular changes were noted in the descending and sigmoid colon. Scope was brought back the rectum and this appeared normal. Scope withdrawn for patient.
[2020-10-10 10:57] VITALS: BP 121/56; PULSE 75
--- NOTE | 2020-10-10 16:30 | FL ---
EXAMINATION TYPE: FL barium enema w air contrast DATE OF EXAM: 10/10/2020 COMPARISON: CT abdomen and pelvis April 06, 2012 HISTORY: Incomplete colonoscopy TECHNIQUE: A double contrast barium enema study is performed. Total tumor dose 58 seconds of fluoros copic time utilized. 22 spot images saved to PACS. FINDINGS: Maintenance Coordinator view of the abdomen shows overall non-obstructive bowel gas pattern. There is then successful filling of colon retrograde fashion to the level of cecum. There is some ini tial delay in passing through the hepatic flexure which eventually fills. Initial images show low-lyi ng sigmoid colon, possible extension into right inguinal hernia but this did not persist throughout s tudy suspected transient as appeared to come and go throughout the study. There is very short segment right colon with cecum wandering into the right upper to midabdomen correlating with 2012 CT. There are some scattered diverticula in the sigmoid colon. Episodes of spasm occurred several times during study. There is some redundancy of the sigmoid colon making evaluation at this level suboptimal. No o bstructing or constricting lesion throughout the colon. Appendix opacified and filled within normal l imits. Suboptimal evaluation for polyps due to redundant sigmoid colon and colonic spasm. IMPRESSION: Suboptimal study but no obstructing or constricting lesion. Successful filling to the ce cum.
== END | disposition home or self-care (01) ==
LOC: ORWHC2ENDO 09:13
PROVIDERS: ATTEND Surgery
DX: Z12.11 Encounter for screening for malignant neoplasm of colon (principal); K57.30 Diverticulosis of large intestine without perforation or abscess without bleeding; K64.4 Residual hemorrhoidal skin tags; Q43.8 Other specified congenital malformations of intestine; K21.9 Gastro-esophageal reflux disease without esophagitis; E78.5 Hyperlipidemia, unspecified; I25.10 Atherosclerotic heart disease of native coronary artery without angina pectoris; I10 Essential (primary) hypertension; I25.2 Old myocardial infarction; Z87.01 Personal history of pneumonia (recurrent); N28.9 Disorder of kidney and ureter, unspecified; Z87.442 Personal history of urinary calculi; Z95.5 Presence of coronary angioplasty implant and graft; Z98.890 Other specified postprocedural states; Z82.49 Family history of ischemic heart disease and other diseases of the circulatory system; Z79.1 Long term (current) use of non-steroidal anti-inflammatories (NSAID); Z79.82 Long term (current) use of aspirin; Z79.899 Other long term (current) drug therapy
CPT/HCPCS: 74280; 45330; J1610; J2001; J2704

== ENCOUNTER → 2020-11-05 | Outpatient (CLI) | payer MEDICARE ==
[2020-11-05 19:38] LABS: Basophils # (A) 0.02 X 10*3/uL (0.00-0.10); Basophils % (A) 0.2 %; Eosinophils # (A) 0.13 X 10*3/uL (0.04-0.35); Eosinophils % (A) 1.6 %; HCT 41.9 % (39.6-50.0); Lymphocytes # (A) 1.64 X 10*3/uL (0.90-5.00); MCH 30.4 pg (27.0-32.0); MCHC 33.4 g/dL (32.0-37.0); MCV 91.1 fL (80.0-97.0); Mean Platelet Volume 9.9 fL (9.5-12.2); Monocytes # (A) 0.92 X 10*3/uL (0.20-1.00); Monocytes % (A) 11.2 %; Neutrophils # (A) 5.47 X 10*3/uL (1.80-7.70); Neutrophils % (A) 66.8 %; Platelet Count 243 X 10*3/uL (140-440); RDW 11.9 % (11.5-14.5)
== END | disposition home or self-care (01) ==
LOC: LABWHC1 13:04
PROVIDERS: ATTEND Surgery
DX: K40.91 Unilateral inguinal hernia, without obstruction or gangrene, recurrent (principal)
CPT/HCPCS: 36415; 85025

== ENCOUNTER 2020-11-12 06:08 | Day surgery (SDC) | payer MEDICARE ==
[2020-11-07 13:43] VITALS: BMI 26.6
[~2020-11-12 06:08] MED LIST changes: +ACETAMINOPHEN TAB 500 MG TAB PO PRN; +DEXAMETHASONE SOD PHOSPHATE 4 MG/ML 1 ML VIAL IV ONE; -GLUCAGON 1 MG/ML VIAL ONE; +HEPARIN SODIUM,PORCINE 5,000 UNIT/ML 1 ML VIAL SQ PRN; -LIDOCAINE 1% (10MG/ML) FOR IV START INTRADERMA ONE; +LIDOCAINE 1% (10MG/ML) FOR IV START INTRADERMA PRN; -LIDOCAINE 1% INJ 10MG/ML (20 ML MDV) ONE; +MIDAZOLAM 2 MG/2 ML VIAL IV PRN; +ONDANSETRON 4 MG/2 ML VIAL IVP ONE; -PROPOFOL 10 MG/ML 20 ML VIAL IV ONE
[2020-11-12] MEDS ORDERED: fentaNYL (PF) 50 MCG/ML 2 ML AMP IVP PRN (07:00)
[2020-11-12] MEDS ORDERED: HYDROmorphone 0.5 MG/0.5 ML SYRINGE IVP PRN (07:00)
[2020-11-12] MEDS ORDERED: GLYCOPYRROLATE 0.2 MG/ML 2 ML VIAL ONE (07:46)
[2020-11-12] MEDS ORDERED: ROCURONIUM 10 MG/ML (5 ML VIAL) IV ONE (07:46)
[2020-11-12] MEDS ORDERED: MIDAZOLAM 2 MG/2 ML VIAL ONE (07:46)
[2020-11-12] MEDS ORDERED: fentaNYL (PF) 50 MCG/ML 2 ML AMP ONE (07:46)
[2020-11-12] MEDS ORDERED: LIDOCAINE 1% INJ 10MG/ML (20 ML MDV) ONE (07:46)
[2020-11-12] MEDS ORDERED: NEOSTIGMINE 1 MG/ML 10 ML VIAL ONE (07:46)
[2020-11-12] MEDS ORDERED: ePHEDrine SULFATE/0.9% NACL/PF 50 MG/5 ML SYRINGE IV ONE (07:46)
[2020-11-12] MEDS ORDERED: HYDROmorphone (PF) 1 MG/ML ONE (07:46)
[2020-11-12] MEDS ORDERED: METOPROLOL TARTRATE 5 MG/5 ML VIAL IVP ONE (07:46)
[2020-11-12] MEDS ORDERED: SUCCINYLCHOLINE CHLORIDE 100 MG/5 ML SYR IV ONE (07:46)
[2020-11-12] MEDS ORDERED: ROPIVACAINE 5 MG/ML 30 ML VIAL ONE (07:46)
[2020-11-12] MEDS ORDERED: KETAMINE 10 MG/ML 20 ML VIAL ONE (07:46)
[2020-11-12] MEDS ORDERED: PROPOFOL 10 MG/ML 20 ML VIAL IV ONE (07:46)
[2020-11-12] MEDS ORDERED: BUPIVACAIN-EPI 0.5%-1:200,000 30 ML VIAL SQ ONE ×2 (08:42)
[2020-11-12] MEDS ORDERED: LACTATED RINGERS 1,000 ML IV ONE (08:53)
[2020-11-12 09:35] VITALS: TEMP 96.8
--- NOTE | 2020-11-12 09:39 | P.GSHP ---
History of Present Illness H&P Date: 11/12/20 Chief Complaint: Incarcerated right inguinal hernia Is a 69-year-old male who was found have incarcerated right inguinal hernia. Patient recent barium enema found have colon within his right inguinal hernia. He presents today for laparoscopic robotic-assisted repair. Past Medical History Past Medical History: Coronary Artery Disease (CAD), Hyperlipidemia, Hypertension, Myocardial Infarction (RI), Pneumonia, Renal Disease Additional Past Medical History / Comment(s): Multiple kidney stones Last Myocardial Infarction Date:: 1992 History of Any Multi-Drug Resistant Organisms: None Reported Past Surgical History: Heart Catheterization With Stent Additional Past Surgical History / Comment(s): PCI with stent, lithotripsy and open surgery for stone removals, recent colonoscopy Past Anesthesia/Blood Transfusion Reactions: Motion Sickness Date of Last Stent Placement:: 1992 Smoking Status: Never smoker - Past Family History Father Family Medical History: Myocardial Infarction (RI) Additional Family Medical History / Comment(s): Father of a RI in his 70s. Mother Family Medical History: Myocardial Infarction (RI) Additional Family Medical History / Comment(s): Mother of a RI in her late 60s. Medications and Allergies Home Medications Medication Instructions Recorded Confirmed Type Ergocalciferol (Vitamin D2) 50,000 unit PO LENZ 10/04/18 11/12/20 History [Vitamin D2] Finasteride [Proscar] 5 mg PO HS 10/04/18 11/12/20 History Losartan [Cozaar] 75 mg PO HS 10/04/18 11/12/20 History Meloxicam 7.5 mg PO DAILY 10/04/18 11/12/20 History Omeprazole 20 mg PO HS 10/04/18 11/12/20 History Propranolol [Inderal] 40 mg PO QAM 10/04/18 11/12/20 History Multivitamins, Thera [Multivitamin 1 tab PO DAILY 10/06/18 11/12/20 History (formulary)] Aspirin 325 mg PO DAILY 10/09/20 11/12/20 History Atorvastatin [Lipitor] 20 mg PO HS 10/09/20 11/12/20 History Ibuprofen 200 mg PO Q8H PRN 10/09/20 11/12/20 History Allergies Allergy/AdvReac Type Severity Reaction Status Date / Time No Known Allergies Allergy Verified 11/12/20 06:24 Surgical - Exam Vital Signs Temp Pulse Resp BP Pulse Ox 96.1 F L 66 16 146/79 100 11/12/20 06:28 11/12/20 06:28 11/12/20 06:28 11/12/20 06:28 11/12/20 06:28 - General well developed, well nourished, no distress - Eyes PERRL - ENT normal pinna - Neck no masses - Respiratory normal expansion - Cardiovascular Rhythm: regular - Abdomen Abdomen: soft, non tender Hernia: inguinal (Incarcerated right inguinal hernia) Assessment and Plan Assessment: Right inguinal hernia. We'll perform laparoscopic robotic-assisted repair.
--- NOTE | 2020-11-12 09:42 | P.OP ---
Date of Procedure: 11/12/20 Preoperative Diagnosis: Incarcerated right inguinal hernia Postoperative Diagnosis: Incarcerated right inguinal hernia Left inguinal hernia Procedure(s) Performed: Laparoscopic robotic-assisted repair of incarcerated right inguinal hernia Laparoscopic robotic-assisted repair of left inguinal hernia Excision of left cord lipoma Anesthesia: NABILA Surgeon: Fab Abarca Estimated Blood Loss (ml): 10 Pathology: other (Left coronary lipoma) Condition: stable Description of Procedure: TThe patient's placed on the operating table in the supine position. The patient received general anesthesia. The patient's abdomen was prepped and draped in usual sterile fashion. The skin was anesthetized 1% local Xylocaine at the incision sites. Using an 11 blade a skin incision was made at the umbilicus. The fascia was grasped with a [place] and then the peritoneal cavity was entered with the Veress needle. Position of the Veress needle was confirmed with a positive drop test. After adequate insufflation a 5 mm trocar was placed into the peritoneal cavity. The Laparoscope was placed the peritoneal cavity. And a robotic 8 mm trocar was placed in the right lateral position and then another 8 mm robotic trochars placed in the left lateral position. The original 5 mm trocar was exchanged for a 12 mm trocar. The patient was placed in reverse Trendelenburg and then the patient was docked to the robot. The patient had an incarcerated right we'll hernia. The incarcerated omentum and colon was reduced into the peritoneal cavity. Next the peritoneum over top of the right inguinal hernia was incised and then using blunt and sharp dissection and electrocautery the hernia sac was dissected free from the floor of the inguinal canal. The hernia sac was completely reduced into the peritoneal cavity. And then using the Pro barrel charrer helper mesh the hernia was repaired. The peritoneum was then sutured with 20V lock suture. Next the peritoneum over top of the left inguinal hernia was incised and then using blunt and sharp dissection and electrocautery the hernia sac was dissected free from the floor of the inguinal canal. The cord lipoma was dissected free and sent to pathology. The hernia sac was completely reduced into the peritoneal cavity. And then using the Pro barrel charrer helper mesh the hernia was repaired. The peritoneum was then sutured with 20V lock suture. The patient was then undocked the robot. The needle was withdrawn from the peritoneal cavity. The umbilical trocar site was closed with 0 Ethibond suture. The skin was closed interrupted 3-0 Monocryl suture. Dermabond dressing was applied. Patient was sent to recovery in stable condition.
[2020-11-12 09:45] VITALS: RESP 16
[2020-11-12 12:45] VITALS: BP 129/77; PULSE 86
--- NOTE | 2020-11-13 07:19 | P.ANPRN ---
Procedure Note - Anesthesia - Nerve Block Performed Right Erector Spinae Single Time Out Performed: Yes Date of Procedure: 11/12/20 Procedure Start Time: :09 Procedure Stop Time: 07:16 Location of Patient: PreOp Indication: Acute Post-Operative Pain, Requested by Surgeon Sedation Type: Sedate with meaningful contact maintained Preparation: Sterile Prep Position: Prone Needle Types: [place] Needle Gauge: 21 Ultrasound used to visualize needle placement: Yes Ultrasound used to observe medication spread: Yes Blood Aspirated: No Pain Paresthesia on Injection Noted: No Resistance on Injection: Normal Image Stored and Saved: Yes Events: Uneventful and Well Tolerated (ropi .25% 30cc at l2)
== END 2020-11-12 13:28 | disposition home or self-care (01) ==
LOC: OR 06:08
PROVIDERS: ATTEND Surgery
DX: K40.00 Bilateral inguinal hernia, with obstruction, without gangrene, not specified as recurrent (principal); D17.6 Benign lipomatous neoplasm of spermatic cord; I25.10 Atherosclerotic heart disease of native coronary artery without angina pectoris; I10 Essential (primary) hypertension; E78.5 Hyperlipidemia, unspecified; N28.9 Disorder of kidney and ureter, unspecified; N40.0 Benign prostatic hyperplasia without lower urinary tract symptoms; I25.2 Old myocardial infarction; Z87.01 Personal history of pneumonia (recurrent); Z87.442 Personal history of urinary calculi; Z95.5 Presence of coronary angioplasty implant and graft; Z98.890 Other specified postprocedural states; Z82.49 Family history of ischemic heart disease and other diseases of the circulatory system; Z79.1 Long term (current) use of non-steroidal anti-inflammatories (NSAID); Z79.82 Long term (current) use of aspirin; Z79.899 Other long term (current) drug therapy
CPT/HCPCS: 49650; 64999; 76942; 88304; C1781 ×2; J2250; J1644; J1100; J2710; J0690; J2405; J2001; J3010; J1170; J2795; J0330; J2704; 64461

== ENCOUNTER 2020-11-16 21:53 | Emergency (ER) | payer MEDICARE ==
[2020-11-16 21:59] VITALS: BP 175/85; PULSE 100; RESP 18; TEMP 97.9
--- NOTE | 2020-11-16 22:16 | ED ---
Recheck HPI - General Chief Complaint: Recheck/Abnormal Lab/Rx Stated Complaint: RT flank pain Time Seen by Provider: 11/16/20 22:02 Source: patient Mode of arrival: ambulatory Limitations: no limitations - History of Present Illness Initial Comments: This patient is 69-year-old man who presents to have evaluation of his surgical sites as they have become discolored. The patient had right inguinal hernia repair performed by Dr. Abarca on Tuesday. He states that over the course today he noticed that there was some purplish discoloration near the right lower quadrant incision and also to his groin and down towards the scrotum area. He denies any associated pain. He is not having any drainage from the incisions. No fever or chills. He states that he is urinating well without any problems. No change in bowel movements. No nausea or vomiting MD Complaint: other -: days(s) Initial Visit For: other Returns Today for: wound recheck Symptoms Since Prior Visit: no new symptoms Associated Symptoms: none - Related Data Home Medications Medication Instructions Recorded Confirmed Ergocalciferol (Vitamin D2) 50,000 unit PO LENZ 10/04/18 11/12/20 [Vitamin D2] Finasteride [Proscar] 5 mg PO HS 10/04/18 11/12/20 Losartan [Cozaar] 75 mg PO HS 10/04/18 11/12/20 Meloxicam 7.5 mg PO DAILY 10/04/18 11/12/20 Omeprazole 20 mg PO HS 10/04/18 11/12/20 Propranolol [Inderal] 40 mg PO QAM 10/04/18 11/12/20 Multivitamins, Thera [Multivitamin 1 tab PO DAILY 10/06/18 11/12/20 (formulary)] Aspirin 325 mg PO DAILY 10/09/20 11/12/20 Atorvastatin [Lipitor] 20 mg PO HS 10/09/20 11/12/20 Ibuprofen 200 mg PO Q8H PRN 10/09/20 11/12/20 Previous Rx's Medication Instructions Recorded Acetaminophen Tab [Tylenol] 650 mg PO Q6H #30 tab 11/12/20 Docusate [Colace] 100 mg PO BID #20 capsule 11/12/20 Ibuprofen [Motrin] 600 mg PO Q6HR PRN #40 tab 11/12/20 oxyCODONE HCL [OxyIR] 5 mg PO Q4H PRN 3 Days #18 tab 11/12/20 Allergies Allergy/AdvReac Type Severity Reaction Status Date / Time No Known Allergies Allergy Verified 11/12/20 06:24 Review of Systems ROS Statement: Those systems with pertinent positive or pertinent negative responses have been documented in the HPI. ROS Other: All systems not noted in ROS Statement are negative. Constitutional: Denies: fever, chills Respiratory: Denies: cough, dyspnea Cardiovascular: Denies: chest pain, palpitations, edema Gastrointestinal: Denies: abdominal pain, nausea, vomiting, diarrhea, constipation Genitourinary: Denies: dysuria, hematuria, discharge, testicular pain, testicular mass Musculoskeletal: Denies: back pain Skin: Reports: change in color. Denies: rash Past Medical History Past Medical History: Coronary Artery Disease (CAD), Hyperlipidemia, Hypertension, Myocardial Infarction ([place]), Pneumonia, Renal Disease Additional Past Medical History / Comment(s): Multiple kidney stones Last Myocardial Infarction Date:: 1992 History of Any Multi-Drug Resistant Organisms: None Reported Past Surgical History: Heart Catheterization With Stent Additional Past Surgical History / Comment(s): PCI with stent, lithotripsy and open surgery for stone removals, recent colonoscopy Past Anesthesia/Blood Transfusion Reactions: Motion Sickness Date of Last Stent Placement:: 1992 Past Psychological History: No Psychological Hx Reported Smoking Status: Never smoker Past Alcohol Use History: None Reported Past Drug Use History: None Reported - Past Family History Father Family Medical History: Myocardial Infarction (AR) Additional Family Medical History / Comment(s): Father of a AR in his 70s. Mother Family Medical History: Myocardial Infarction (AR) Additional Family Medical History / Comment(s): Mother of a AR in her late 60s. General Exam Limitations: no limitations General appearance: alert, in no apparent distress Head exam: Present: atraumatic, normocephalic Respiratory exam: Present: normal lung sounds bilaterally. Absent: respiratory distress, wheezes, rales, rhonchi, stridor Cardiovascular Exam: Present: regular rate, normal rhythm, normal heart sounds. Absent: systolic murmur, diastolic murmur, rubs, gallop GI/Abdominal exam: Present: soft, other (Patient's surgical incisions are clean dry and intact. He has developed some ecchymosis to the skin dependent to the right lower quadrant incision and also to the groin center around his penis. There is no edema or swelling. There is no tenderness. There is no warmth or erythema.). Absent: distended, tenderness, guarding, rebound, rigid, mass exam: Present: vertical testicular lie, other (As above). Absent: testicular tenderness, scrotal swelling Extremities exam: Present: normal inspection Neurological exam: Present: alert Skin exam: Present: warm, dry, intact. Absent: normal color (Vilma-incisional ecchymosis) Course Vital Signs 11/16/20 21:54 Temperature 97.9 F Pulse Rate 100 Respiratory 18 Rate Blood Pressure 175/85 O2 Sat by Pulse 97 Oximetry Medical Decision Making - Medical Decision Making Patient is 69-year-old man presenting with concern about some ecchymosis near his surgical sites. The incisions are clean dry and intact without any evidence of postoperative infection. The ecchymosis fits within the range of normal postoperative appearance. We discussed appropriate further care and follow-up. Discussed return parameters. Disposition Clinical Impression: Ecchymosis of periwound skin Disposition: HOME SELF-CARE Condition: Good Instructions (If sedation given, give patient instructions): Ecchymosis (ED) Is patient prescribed a controlled substance at d/c from ED?: No Referrals: Adelina Scott DO [Primary Care Provider] - 1-2 days
== END 2020-11-16 22:23 | disposition home or self-care (01) ==
LOC: EC 21:53
DX: R58 Hemorrhage, not elsewhere classified (principal); I10 Essential (primary) hypertension; I25.2 Old myocardial infarction; E78.5 Hyperlipidemia, unspecified; Z79.899 Other long term (current) drug therapy; Z79.1 Long term (current) use of non-steroidal anti-inflammatories (NSAID); Z79.82 Long term (current) use of aspirin; Z87.442 Personal history of urinary calculi
CPT/HCPCS: 99283

== ENCOUNTER → 2020-12-08 | Outpatient (CLI) | payer MEDICARE ==
--- NOTE | 2020-12-08 07:35 | CT ---
EXAMINATION TYPE: CT chest wo con DATE OF EXAM: 12/08/2020 COMPARISON: None HISTORY: ILD, CAD, Cough, Pleural Effusion CT DLP: 607.6 mGycm High-resolution noncontrast CT of the chest was performed with the patient in the prone and supine po sitions. Lung and mediastinal window settings are submitted. The lungs appear to be well-aerated. There is very mild scattered subpleural fibrotic change seen. Th ere is no evidence for bronchiectasis, groundglass infiltrate, nodule or mass. No pleural effusion i s identified. I do not see evidence for hilar or mediastinal mass or adenopathy. IMPRESSION: There is very mild scattered subpleural fibrotic change seen.
== END | disposition home or self-care (01) ==
LOC: RADCTMAIN 06:37
PROVIDERS: ATTEND Internal Medicine Pulmonary Disease
DX: J84.9 Interstitial pulmonary disease, unspecified (principal)
CPT/HCPCS: 71250

== ENCOUNTER 2023-05-04 14:06 | Emergency (ER) | payer MEDICARE, OTHER ==
[2023-05-04 14:16] VITALS: BP 138/80; PULSE 73; RESP 20; TEMP 98.3
[2023-05-04] MEDS ORDERED: DIPH,PERTUS(ACELL)TETVAC-LF 0.5 ML VIAL IM ONE (14:52)
[2023-05-04] MEDS ORDERED: LIDOCAINE 1% INJ 10MG/ML (20 ML MDV) SQ ONE (14:54)
--- NOTE | 2023-05-04 15:09 | ED ---
General Adult HPI - General Chief complaint: Wound/Laceration Stated complaint: RT INDEX FINGER RAZOR BLADE Time Seen by Provider: 05/04/23 14:30 Source: patient, RN notes reviewed Mode of arrival: ambulatory Limitations: no limitations - History of Present Illness Initial comments: 72-year-old male presents emergency department chief complain of right index finger laceration. He states that he was working earlier with a razor blade when he cut his finger. He is on the dorsal aspect of the right index finger. He is unsure of his last tetanus update. He reports normal sensation, normal range of motion of the finger. - Related Data Home Medications Medication Instructions Recorded Confirmed Ergocalciferol (Vitamin D2) 50,000 unit PO LENZ 10/04/18 11/12/20 [Vitamin D2] Finasteride [Proscar] 5 mg PO HS 10/04/18 11/12/20 Losartan [Cozaar] 75 mg PO HS 10/04/18 11/12/20 Meloxicam 7.5 mg PO DAILY 10/04/18 11/12/20 Omeprazole 20 mg PO HS 10/04/18 11/12/20 Propranolol [Inderal] 40 mg PO QAM 10/04/18 11/12/20 Multivitamins, Thera [Multivitamin 1 tab PO DAILY 10/06/18 11/12/20 (formulary)] Aspirin 325 mg PO DAILY 10/09/20 11/12/20 Atorvastatin [Lipitor] 20 mg PO HS 10/09/20 11/12/20 Ibuprofen 200 mg PO Q8H PRN 10/09/20 11/12/20 Previous Rx's Medication Instructions Recorded Acetaminophen Tab [Tylenol] 650 mg PO Q6H #30 tab 11/12/20 Docusate [Colace] 100 mg PO BID #20 capsule 11/12/20 Ibuprofen [Motrin] 600 mg PO Q6HR PRN #40 tab 11/12/20 oxyCODONE HCL [OxyIR] 5 mg PO Q4H PRN 3 Days #18 tab 11/12/20 Allergies Allergy/AdvReac Type Severity Reaction Status Date / Time No Known Allergies Allergy Verified 05/04/23 14:16 Review of Systems ROS Statement: Those systems with pertinent positive or pertinent negative responses have been documented in the HPI. ROS Other: All systems not noted in ROS Statement are negative. Past Medical History Past Medical History: Coronary Artery Disease (CAD), Hyperlipidemia, Hypertension, Myocardial Infarction ([place]), Pneumonia, Renal Disease Additional Past Medical History / Comment(s): Multiple kidney stones Last Myocardial Infarction Date:: 1992 History of Any Multi-Drug Resistant Organisms: None Reported Past Surgical History: Heart Catheterization With Stent Additional Past Surgical History / Comment(s): PCI with stent, lithotripsy and open surgery for stone removals, recent colonoscopy Past Anesthesia/Blood Transfusion Reactions: Motion Sickness Date of Last Stent Placement:: 1992 Past Psychological History: No Psychological Hx Reported Smoking Status: Never smoker Past Alcohol Use History: None Reported Past Drug Use History: None Reported - Past Family History Father Family Medical History: Myocardial Infarction ([place]) Additional Family Medical History / Comment(s): Father of a [place] in his 70s. Mother Family Medical History: Myocardial Infarction ([place]) Additional Family Medical History / Comment(s): Mother of a [place] in her late 60s. General Exam Limitations: no limitations General appearance: alert, in no apparent distress Head exam: Present: atraumatic, normocephalic, normal inspection Eye exam: Present: normal appearance, PERRL, EOMI. Absent: scleral icterus, conjunctival injection, periorbital swelling ENT exam: Present: normal exam, mucous membranes moist Neck exam: Present: normal inspection. Absent: tenderness, meningismus, lymphadenopathy Respiratory exam: Present: normal lung sounds bilaterally. Absent: respiratory distress, wheezes, rales, rhonchi, stridor Cardiovascular Exam: Present: regular rate, normal rhythm, normal heart sounds. Absent: systolic murmur, diastolic murmur, rubs, gallop, clicks Extremities exam: Present: full ROM, tenderness (Dorsal right index finger), normal capillary refill, other (2 cm laceration to dorsal aspect of right index finger) Back exam: Present: normal inspection Neurological exam: Present: alert, oriented X3 Psychiatric exam: Present: normal affect, normal mood Skin exam: Present: warm, dry, normal color, other (Laceration to dorsal aspect of right index finger) Course Vital Signs 05/04/23 14:12 Temperature 98.3 F Pulse Rate 73 Respiratory 20 Rate Blood Pressure 138/80 O2 Sat by Pulse 98 Oximetry Procedures - Laceration Laceration #1 Consent Obtained: verbal consent Indication: laceration Site: hand (Right index finger) Size (cm): 2 Description: linear Depth: simple, single layer Anesthetic Used: lidocaine 1% Anesthesia Technique: nerve block Pre-repair: wound explored, irrigated extensively Type of Sutures: other (monofilament) Size of Sutures: 5-0 Number of Sutures: 8 Technique: simple, interrupted Patient Tolerated Procedure: well, no complications Medical Decision Making - Medical Decision Making Was pt. sent in by a medical professional or institution (, [facility], OVERNIGHT CASHIER, urgent care, hospital, or group home...) When possible be specific @ -No Did you speak to anyone other than the patient for history (EMS, parent, family, police, friend...)? What history was obtained from this source @ -No Did you review nursing and triage notes (agree or disagree)? Why? @ -I reviewed and agree with nursing and triage notes Were old charts reviewed (outside hosp., previous admission, EMS record, old EKG, old radiological studies, urgent care reports/EKG's, group home records)? Report findings @ -No old charts were reviewed Differential Diagnosis (chest pain, altered mental status, abdominal pain women, abdominal pain men, vaginal bleeding, weakness, fever, dyspnea, syncope, headache, dizziness, GI bleed, back pain, seizure, CVA, palpatations, mental health, musculoskeletal)? @ -Differential Musculoskeletal Muscular strain, contusion, ligament sprain, fracture, arthritis, septic arthritis, bursitis, cellulitis, muscle spasm, nerve compression, DVT, arterial occlusion, herpes zoster, electrolyte abnormality, tumor.... This is not meant to be in all inclusive list EKG interpreted by me (3pts min.). @ -None X-rays interpreted by me (1pt min.). @ -X-ray right index finger showed no evidence of foreign body or acute fracture CT interpreted by me (1pt min.). @ -None done U/S interpreted by me (1pt. min.). @ -None done What testing was considered but not performed or refused? (CT, X-rays, U/S, labs)? Why? @ -None What meds were considered but not given or refused? Why? @ -None Did you discuss the management of the patient with other professionals (professionals i.e. , [facility], OVERNIGHT CASHIER, lab, RT, psych nurse, healthcare social worker, pickup driver, teacher, front desk officer, rn case manager)? Give summary @ -No Was smoking cessation discussed for >3mins.? @ -No Was critical care preformed (if so, how long)? @ -No Were there social determinants of health that impacted care today? How? (Homelessness, low income, unemployed, alcoholism, drug addiction, transportation, low edu. Level, literacy, decrease access to med. care, skilled nursing, rehab)? @ -No Was there de-escalation of care discussed even if they declined (Discuss DNR or withdrawal of care, Hospice)? DNR status @ -No What co-morbidities impacted this encounter? (DM, HTN, Smoking, COPD, CAD, Cance r, CVA, ARF, Chemo, Hep., AIDS, mental health diagnosis, sleep apnea, morbid obesity)? @ -None Was patient admitted / discharged? Hospital course, mention meds given and route, prescriptions, significant lab abnormalities, going to OR and other pertinent info. @ -Discharged. Patient presented to emergency department chief complaint of right index finger laceration that occurred while he was working with a razor blade earlier today. Patient has a 2cm laceration to the dorsal aspect of his right index finger. XR obtained showed no evidence of foreign body. Patient received tetanus vaccination. Laceration was irrigated and repaired. Patient stable at time of discharge. This is an attending, Dr. Ruiz Undiagnosed new problem with uncertain prognosis? @ -No Drug Therapy requiring intensive monitoring for toxicity (Heparin, Nitro, Insulin, Cardizem)? @ -No Were any procedures done? @ -No Diagnosis/symptom? @ -Laceration Acute, or Chronic, or Acute on Chronic? @ -Acute Uncomplicated (without systemic symptoms) or Complicated (systemic symptoms)? @ -uncomplicated Side effects of treatment? @ -No Exacerbation, Progression, or Severe Exacerbation? @ -No Poses a threat to life or bodily function? How? (Chest pain, [place], [place], pneumonia, PE, COPD, DKA, ARF, appy, cholecystitis, CVA, Diverticulitis, Homicidal, Suicidal, threat to staff... and all critical care pts) @ -No Disposition Clinical Impression: Laceration Disposition: HOME SELF-CARE Condition: Stable Instructions (If sedation given, give patient instructions): Care For Your Stitches (ED) Additional Instructions: Please have Stitches removed in 5-7 days. Keep wound clean and dry. Return to the emergency department for any new or worsening symptoms. Follow up with your primary care provider. Is patient prescribed a controlled substance at d/c from ED?: No Referrals: Adelina Scott DO [Primary Care Provider] - 1-2 days Time of Disposition: 15:43
--- NOTE | 2023-05-04 15:24 | XR ---
EXAMINATION TYPE: XR finger RT DATE OF EXAM: 05/04/2023 3:11 PM INDICATION: Patient age:Male; 72 years old; Reason for study: index FINGER LACERATION; [facility]. COMPARISON: None TECHNIQUE: Frontal, lateral and oblique views of the index finger of the right hand were obtained. FINDINGS: Normal alignment of the visualized joints. No acute osseous pathology is identified. No e vidence of soft tissue swelling. No radiopaque foreign body. IMPRESSION: No acute fracture or radiopaque foreign body.
== END 2023-05-04 16:00 | disposition home or self-care (01) ==
LOC: EC 14:06
DX: S61.210A Laceration without foreign body of right index finger without damage to nail, initial encounter (principal); I10 Essential (primary) hypertension; I25.10 Atherosclerotic heart disease of native coronary artery without angina pectoris; I25.2 Old myocardial infarction; E78.5 Hyperlipidemia, unspecified; Z23 Encounter for immunization; Z79.82 Long term (current) use of aspirin; Z79.899 Other long term (current) drug therapy; Z95.5 Presence of coronary angioplasty implant and graft; W26.8XXA Contact with other sharp object(s), not elsewhere classified, initial encounter
CPT/HCPCS: 73140; 90715; 12001; 99283; 90471; J2001

== ENCOUNTER 2024-01-23 10:10 | Day surgery (SDC) | payer MEDICARE ==
[2024-01-23] MEDS: SODIUM CHLORIDE 0.9% 1,000 ML IV ONE (08:08)
[~2024-01-23 10:10] MED LIST changes: -ACETAMINOPHEN TAB 500 MG TAB PO PRN; +ALPRAZolam 0.25 MG TAB PO PRN; +ALPRAZolam 0.5 MG TAB PO PRN; -DEXAMETHASONE SOD PHOSPHATE 4 MG/ML 1 ML VIAL IV ONE; +HEPARIN SODIUM,PORCINE (1 ML) 2,500 UNIT in SODIUM CHLORIDE 0.9% 250 ML IRRIGATION PRN; +HEPARIN SODIUM,PORCINE 10,000 UNIT in SODIUM CHLORIDE 0.9% 1,000 ML IRRIGATION PRN; -HEPARIN SODIUM,PORCINE 5,000 UNIT/ML 1 ML VIAL SQ PRN; -LACTATED RINGERS 1,000 ML IV SCH; -LIDOCAINE 1% (10MG/ML) FOR IV START INTRADERMA PRN; -MIDAZOLAM 2 MG/2 ML VIAL IV PRN; +NITROGLYCERIN SL TABS 0.4 MG TAB SUBLINGUAL PRN; -ONDANSETRON 4 MG/2 ML VIAL IVP ONE
[2024-01-23 10:50] LABS: Basophils % (A) 0 %; Eosinophils # (A) 0.1 k/uL (0-0.7); Eosinophils % (A) 1 %; HCT 44.8 % (39.0-53.0); HGB 14.8 gm/dL (13.0-17.5); Lymphocytes # (A) 1.5 k/uL (1.0-4.8); Lymphocytes % (A) 19 %; MCH 30.7 pg (25.0-35.0); MCHC 33.2 g/dL (31.0-37.0); MCV 92.6 fL (80.0-100.0); Mean Platelet Volume 7.3; Monocytes # (A) 0.6 k/uL (0-1.0); Monocytes % (A) 8 %; Neutrophils # (A) 5.5 k/uL (1.3-7.7); Neutrophils % (A) 69 %; Platelet Count 242 k/uL (150-450); RBC 4.83 m/uL (4.30-5.90); WBC 7.9 k/uL (3.8-10.6)
[2024-01-23] MEDS ORDERED: LIDOCAINE 1% INJ 10MG/ML (20 ML MDV) ONE (10:59)
[2024-01-23] MEDS ORDERED: VERAPAMIL 2.5 MG/ML 2 ML AMP ONE (10:59)
[2024-01-23 11:05] LABS: African American GFR (CKD) >90 (>60 ml/min/1.73 sqM); Anion Gap 6 mmol/L; Blood Urea Nitrogen 23 mg/dL (9-20); Calcium 9.4 mg/dL (8.4-10.2); Carbon Dioxide 26 mmol/L (22-30); Chloride 108 mmol/L (98-107); Glucose 91 mg/dL (74-99); Non-African American GFR(CKD) >90 (>60 ml/min/1.73 sqM); Potassium 4.3 mmol/L (3.5-5.1); Sodium 140 mmol/L (137-145)
[2024-01-23] MEDS: MIDAZOLAM 2 MG/2 ML VIAL IVP ONE ×2 (11:20→11:42)
[2024-01-23] MEDS: LIDOCAINE 1% INJ 10MG/ML (20 ML MDV) SQ ONE (11:21)
[2024-01-23] MEDS: VERAPAMIL SYRINGE (5 MG/10 ML) INTRAARTER ONE (11:23)
[2024-01-23] MEDS ORDERED: HEPARIN SODIUM 1,000 UN/ML (10ML VL) ONE (11:26)
[2024-01-23] MEDS: HEPARIN SODIUM 1,000 UN/ML (10ML VL) IVP ONE (11:27)
[2024-01-23] MEDS: IOPAMIDOL-370 100ML BTL INJ ONE ×2 (11:53→12:56)
[2024-01-23] MEDS ORDERED: TICAGRELOR 90 MG TAB ONE (12:26)
[2024-01-23] MEDS: TICAGRELOR 90 MG TAB PO ONE (12:29)
[2024-01-23] MEDS ORDERED: MAG HYDROX/AL HYDROX/SIMETH 30 ML CUP PO PRN (13:06)
[2024-01-23] MEDS ORDERED: RX INFO: IV CONTRAST WAS GIVEN 1 EACH MISC MISCELLANE PRN (13:06)
[2024-01-23] MEDS ORDERED: ZOLPIDEM 5 MG TAB PO PRN (13:06)
[2024-01-23] MEDS ORDERED: NITROGLYCERIN SL TABS 0.4 MG TAB SUBLINGUAL PRN (13:06)
[2024-01-23] MEDS ORDERED: ATROPINE SULFATE 0.1 MG/ML 10ML SYRINGE IV PRN (13:06)
--- NOTE | 2024-01-23 13:12 | P.PCN ---
Date of Procedure: 01/23/24 Operative Findings: CARDIAC CATHETERIZATION AND PERCUTANEOUS CORONARY INTERVENTION PERFORMING PHYSICIAN: Jere Dent MD, [facility] PROCEDURE PERFORMED: 1. Selective right and left coronary angiogram 2. Left heart catheterization 3. Successful stenting of proximal LAD using 3.5 x 28 mm Xience ARMIN with an excellent angiographic results 4. Adjunctive use of Dobler wire and intravascular imaging 5. Ultrasound-guided access of the right common femoral artery and the right radial artery 6. Selective right common femoral artery angiogram INDICATION: Abnormal myocardial perfusion imaging in this 73-year-old gentleman who was symptomatic. COMPLICATION: None APPROACH: Right radial artery and right common femoral artery LEVEL OF SEDATION: Moderate with the sedation time off 100 minutes PROCEDURE DESCRIPTION: After obtaining informed consent the patient was brought to the cardiac Vocational Aide. The right radial artery was cannulated using micropuncture technique under ultrasound guidance and micropuncture wire passed easily then I placed a 6 Estonian sheath at the right radial artery and gave the patient 5000 and of heparin IV and 2 mg of verapamil intravenous. Selective right and left coronary angiogram performed using JR4 and JL 3.5 catheters. Left heart catheterization was performed using the JL 3.5 catheter which crossed the aortic valve. After that I decided to do an FFR of the LAD and left main. After zeroing the Doppler wire and equalizing between the Doppler wire and and the guiding catheter which was initially JL 3.5 guiding catheter and subsequently JL 3 guiding catheter I could not engage the left main because of severe tortuosity in the right subclavian artery but at that point I decided to access the right common femoral artery using micropuncture technique under ultrasound guidance and the micropuncture wire passed easily then I placed a 6 Estonian 11 cm sheath at the right common femoral artery with after that I was able to equalize again between the Doppler wire and guiding catheter which was JL 3 guiding catheter were subsequently the left main was engaged and subsequently the LAD was wired and I did pullback across the LAD and the left main. Clearly there was no disease in the left main but there was critical disease involving the LAD with a lesion showed an IFR of 0.55. At that point I did leave the Dobler wire in place and I wired the LAD using a run-through wire just to have more support. Subsequently I did intravascular ultrasound which showed a diameter around 3.5 mm with heavily calcified vessel. Predilatation was performed using 2.0 mm score flex balloon and subsequently 3.5 mm noncompliant balloon which did not open completely. At that point I decided to do lithotripsy balloon which was 3.5 mm. After that I was able to deploy a 3.5 x 28 mm stent which was stented using 3.5 mm noncompliant balloon. Final angiogram showed excellent angiographic results and the procedure was completed with no complication SELECTIVE CORONARY ANGIOGRAM: The right coronary artery: Large-caliber vessel and a dominant vessel and chronically occluded in the midportion Left main: Calcified with mild disease on The left circumflex: Large caliber vessel nondominant vessel with mild to moderate disease with no high-grade stenosis The left anterior descending artery: Has severe disease in the proximal portion documented to be flow-limiting by Doppler wire HEMODYNAMICS: LVEDP was 8 mmHg with no significant gradient across aortic valve CONCLUSION: Chronic total occlusion of the RCA Severe disease involving the proximal LAD. I performed successful stenting of the LAD as described above POSTPROCEDURE MANAGEMENT: 1. Dual antiplatelet therapy using aspirin and Brilinta for at least 6 month 2. Aggressive cholesterol control 3. Follow-up with the patient
[2024-01-23] MEDS: SODIUM CHLORIDE 0.9% 1,000 ML in EMPTY BAG 1 BAG IV SCH ×2 (14:54→15:25)
[2024-01-23] MEDS: ATORVASTATIN 80 MG TAB PO STA (14:54)
[2024-01-23] MEDS: ASPIRIN 325 MG TAB PO STA (14:54)
[2024-01-23] MEDS: ALBUTEROL NEBULIZED 2.5 MG/3 ML INHALATION SCH (15:33)
[2024-01-23] MEDS: BUDESONIDE 0.5 MG/2 ML NEBU INHALATION SCH (18:31)
[2024-01-23] MEDS: FINASTERIDE 5 MG TAB PO SCH (21:03)
[2024-01-23] MEDS: MONTELUKAST 10 MG TAB PO SCH (21:03)
[2024-01-23] MEDS: PANTOPRAZOLE 40 MG TABLET PO SCH (21:03)
[2024-01-23] MEDS: MELOXICAM 7.5 MG TAB PO SCH (21:03)
[2024-01-23] MEDS: MAGNESIUM OXIDE 400 MG TAB PO SCH (21:03)
[2024-01-23] MEDS: TICAGRELOR 90 MG TAB PO SCH (21:04)
[2024-01-23 22:40] VITALS: RESP 18
[2024-01-24] MEDS: ATORVASTATIN 20 MG TAB PO SCH (07:36)
[2024-01-24] MEDS: PROPRANOLOL 20 MG TAB PO SCH (07:36)
[2024-01-24] MEDS: MULTIVITAMINS, THERA 1 EACH TAB PO SCH (07:36)
[2024-01-24] MEDS: ASPIRIN 325 MG TAB PO SCH (07:36)
[2024-01-24] MEDS: LOSARTAN 50 MG TAB PO SCH (07:36)
--- NOTE | 2024-01-24 08:15 | P.DS ---
Providers Attending physician: Jere Dent Consults: 01/23/24 13:06 Consult Physician Routine Consulting Provider: [facility] Reason/Comments: Post Interventional patient Do you want consulting provider notified?: Already Contacted Primary care physician: Julienne Sinclair [facility] Course: The patient is a pleasant 73-year-old gentleman who underwent yesterday successful PCI of the left anterior descending artery. The procedure was performed from right radial and right femoral approach. He was seen and evaluated this morning. He is asymptomatic and hemodynamically stable. Both sites are soft and nontender with no bruises. The patient is going to be discharged home on dual antiplatelet therapy and I will follow-up with the patient next week in the office Plan - Discharge Summary Discharge Rx Participant: No New Discharge Prescriptions: New Ticagrelor [Brilinta] 90 mg PO BID #180 tab Continue Propranolol [Inderal] 20 mg PO QAM Finasteride [Proscar] 5 mg PO HS Ergocalciferol (Vitamin D2) [Vitamin D2] 50,000 unit PO LENZ Omeprazole 20 mg PO HS Meloxicam 7.5 mg PO BID Losartan [Cozaar] 75 mg PO QAM Multivitamins, Thera [Multivitamin (formulary)] 1 tab PO DAILY Atorvastatin [Lipitor] 20 mg PO QAM Aspirin 325 mg PO QAM Montelukast [Singulair] 10 mg PO HS Ibuprofen [Motrin] 800 mg PO DAILY PRN PRN Reason: Pain Albuterol Nebulized [Ventolin Nebulized] 1 inhalation INHALATION QID Magnesium 250 mg PO HS Budesonide [Pulmicort] 0.5 mg INHALATION BID Discharge Medication List Ergocalciferol (Vitamin D2) [Vitamin D2] 50,000 unit PO LENZ 10/04/18 [History] Finasteride [Proscar] 5 mg PO HS 10/04/18 [History] Losartan [Cozaar] 75 mg PO QAM 10/04/18 [History] Meloxicam 7.5 mg PO BID 10/04/18 [History] Omeprazole 20 mg PO HS 10/04/18 [History] Propranolol [Inderal] 20 mg PO QAM 10/04/18 [History] Multivitamins, Thera [Multivitamin (formulary)] 1 tab PO DAILY 10/06/18 [History] Aspirin 325 mg PO QAM 10/09/20 [History] Atorvastatin [Lipitor] 20 mg PO QAM 10/09/20 [History] Albuterol Nebulized [Ventolin Nebulized] 1 inhalation INHALATION QID 01/18/24 [History] Budesonide [Pulmicort] 0.5 mg INHALATION BID 01/18/24 [History] Ibuprofen [Motrin] 800 mg PO DAILY PRN 01/18/24 [History] Magnesium 250 mg PO HS 01/18/24 [History] Montelukast [Singulair] 10 mg PO HS 01/18/24 [History] Ticagrelor [Brilinta] 90 mg PO BID #180 tab 01/24/24 [Rx] Follow up Appointment(s)/Referral(s): Jere Dent MD [STAFF PHYSICIAN] - 1 Week (will call with appt and time) Patient Instructions/Handouts: Heart Catheterization (DC), Right Heart Catheterization (DC) Activity/Diet/Wound Care/Special Instructions: * NO DRIVING FOR 2 DAYS * NO BENDING/FLEXING/PUSHING/PULLING OR LIFTING >5 LBS X5 DAYS * NO SUBMERGING RIGHT WRIST IN ANY POOLS, HOT TUBS, BATHS, DISH WATER FOR 3 DAYS * FOLLOW UP WITH [facility] ST[facility]ER * RESUME HOME MEDICATIONS * FALL RISK/SAFETY
[2024-01-24 10:46] LABS: African American GFR (CKD) >90 (>60 ml/min/1.73 sqM); Non-African American GFR(CKD) 89 (>60 ml/min/1.73 sqM)
[2024-01-24 11:37] VITALS: BP 154/81; PULSE 81; TEMP 98.1
[2024-01-29] MEDS ORDERED: ERGOCALCIFEROL 1,250 MCG (50,000 IU) CAPSULE PO SCH (09:00)
== END 2024-01-24 11:10 | disposition home or self-care (01) ==
LOC: CATHCVL 10:10 → 3SCARD 13:05 → CATHCVL 01-24 11:10
PROVIDERS: ATTEND Internal Medicine Interventional Cardiology
DX: I25.10 Atherosclerotic heart disease of native coronary artery without angina pectoris (principal); E78.5 Hyperlipidemia, unspecified; I10 Essential (primary) hypertension; I25.82 Chronic total occlusion of coronary artery; Z79.02 Long term (current) use of antithrombotics/antiplatelets; Z79.82 Long term (current) use of aspirin; Z79.899 Other long term (current) drug therapy
CPT/HCPCS: 94640 ×3; 92978; 93458; 93799; 92972; 76937; 80048; 82565; 85025; C9600; C1769 ×5; C1760; C1887 ×2; C1894 ×2; C1753; C1874; C1725 ×3; C1761; S0138; J2250; J2001; J1644; Q9967

== ENCOUNTER → 2025-01-07 | Outpatient (CLI) | payer MEDICARE ==
--- NOTE | 2025-01-07 08:21 | MR ---
INDICATION: Patient age:Male; 74 years old; Reason for study: R25.1; [facility]. Tremors COMPARISON: None. TECHNIQUE: Multi planar, multi sequence imaging was performed through the brain. The patient was then given 7 cc of Gadobutrol intravenously and multi planar, T1 fat-saturation images were obtained. FINDINGS: The whaley-white junctions, ventricular system, basal cisterns appear unremarkable. Age-appropriate cer ebral volume loss. Diffusion-weighted imaging shows no evidence of restricted diffusion to suggest ac roselia/subacute infarct. Intracranial arterial flow voids are maintained. Midline structures show no abn ormality. Minimal patchy areas of high T2 signal intensity are seen within the periventricular white matter. There is a heterogenous T1 hyperintense/T2 hypointense lesion within the right frontal lobe g ray-white region measuring 0.8 cm (series 201, image 24). Demonstrates considerable blooming artifact on susceptibility weighted imaging consistent with hemosiderin deposition. Questionable enhancement on postcontrast imaging versus intrinsic T1 hyperintensity. No surrounding edema identified. The bone marrow signal is within normal limits. Bilateral aphakia. Minimal mucosal thickening in the ethmoid sinuses. IMPRESSION: 1. No evidence of acute/subacute infarct. 2. 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 3. Minimal nonspecific white matter changes, likely related to small vessel ischemic disease. [facility], , 01/07/2025 8:19 AM
== END | disposition home or self-care (01) ==
LOC: RADMRIMAIN 05:58
PROVIDERS: ATTEND Family Medicine
DX: R25.1 Tremor, unspecified (principal); R90.82 White matter disease, unspecified; G93.0 Cerebral cysts
CPT/HCPCS: 70553; A9585